=== PATIENT | female | born 1930 | race Caucasian/White ===

== ENCOUNTER 2017-01-23 16:02 | Inpatient (IN) | payer OTHER ==
[2017-01-23] MEDS ORDERED: SODIUM CHLORIDE 500 ML IV STA ×2 (16:35→20:22)
[2017-01-23] MEDS ORDERED: ONDANSETRON 4 MG/2 ML VIAL IVPB ONE (16:35)
[2017-01-23] MEDS ORDERED: ONDANSETRON 4 MG/2 ML VIAL ONE (16:46)
--- NOTE | 2017-01-23 17:10 | PDOC ---
History of Present Illness - General History Source: Family Exam Limitations: Other - History of Present Illness Initial Comments: 01/23/17 18:47 The patient is a 86 year old female presenting with family, with a significant past medical history of HTN, arthritis, left lower extremity atrophy, asthma and colon CA s/p resection, who presents to the emergency department with fever , nausea, vomiting and abdominal pain for the past 3 days. The daughter describes her abdominal pain as moderate in severity, without radiation or modifying factors. The pts vomit appears to be food contents, no blood. They state that every 3 months or so the biliary stent gets clogged and has to be drained, which usually presents with these symptoms. The family notes that most of the bowel movements the patient has are diarrhea like due to the colon resection. The family denies chills and constipation.. Allergies: None Past surgical history: biliary leak-01/10-s/p ERCP/stent pig tail drainage, TKR, right sided carpal tunnel surgery, Colon resection Social history: No alcohol, tobacco or drug use reported PMD - Dr. Mclean GI - Dr. Balderas / Dr. Child <Glen Barahona - Last Filed: 01/23/17 18:47> <Trice Sanchez - Last Filed: 01/24/17 02:31> <Jamie Quarles - Last Filed: 01/25/17 08:13> - General Chief Complaint: Nausea/Vomiting Stated Complaint: VOMITING Time Seen by Provider: 01/23/17 16:34 Past History <Glen Barahona - Last Filed: 01/23/17 18:47> <Trice Sanchez - Last Filed: 01/24/17 02:31> - Past Medical History Anemia: No Asthma: Yes (NO RECENT ATTACK) Cancer: Yes (CECAL COLON) Cardiac Disorders: No CVA: No COPD: No CHF: No Dementia: No Diabetes: No GI Disorders: Yes (BILE LEAK) Disorders: No HTN: Yes Hypercholesterolemia: No Liver Disease: No Seizures: No Thyroid Disease: No - Surgical History Abdominal Surgery: Yes (RT HEMICOLECTOMY, REVERSAL OF ILEOSTOMY) Appendectomy: No Cardiac Surgery: No Cholecystectomy: Yes (biliary leak-/15-s/p ERCP/stent pig tail drainage) Lung Surgery: No Neurologic Surgery: No Orthopedic Surgery: Yes (CARPAL TUNNEL RIGHT; RT KNEE REPLACEMENT; ROTATOR CUFF) - Psycho/Social/Smoking Cessation Hx Anxiety: No Suicidal Ideation: No Smoking History: Unknown if ever smoked Have you smoked in the past 12 months: No Number of Cigarettes Smoked Daily: 0 Information on smoking cessation initiated: No Hx Alcohol Use: No Drug/Substance Use Hx: No Substance Use Type: None Hx Substance Use Treatment: No <Jamie Quarles - Last Filed: 01/25/17 08:13> - Past Medical History Allergies/Adverse Reactions: Allergies Allergy/AdvReac Type Severity Reaction Status Date / Time No Known Allergies Allergy Verified 01/23/17 16:21 Home Medications: Ambulatory Orders Amlodipine Besylate 5 mg PO DAILY #1 tablet 10/19/16 Review of Systems - Review of Systems Able to Perform ROS?: No Comments:: 01/23/17 18:47 ROS is limited. <Glen Barahona - Last Filed: 01/23/17 18:47> *Physical Exam - Vital Signs Last Vital Signs Temp Pulse Resp BP Pulse Ox 97.9 F 92 H 18 142/50 100 01/23/17 16:05 01/23/17 16:05 01/23/17 16:05 01/23/17 16:05 01/23/17 16:05 - Physical Exam Comments: 01/23/17 18:48 GENERAL: The patient is awake, alert, in mild distress. HEAD: Normocephalic, atraumatic. EYES: extraocular movements intact, sclera anicteric, conjunctiva clear. ENT: Moist mucous membranes. NECK: Normal range of motion, supple LUNGS: Breath sounds equal, clear to auscultation bilaterally. No wheezes, no rhonchi, no rales. HEART: Regular rate and rhythm, without murmur, rub or gallop. ABDOMEN: +Diffused abdominal tenderness. Well healed scars. Soft, normoactive bowel sounds. No guarding, no rebound.No CVA tenderness EXTREMITIES: Normal range of motion, no edema. No clubbing or cyanosis. No cords, erythema, or tenderness. NEUROLOGICAL: No facial assymetry. PSYCH: Normal mood, normal affect. SKIN: Warm, Dry, normal turgor <Glen Barahona - Last Filed: 01/23/17 18:47> - Vital Signs Last Vital Signs Temp Pulse Resp BP Pulse Ox 100.0 F H 96 H 22 123/60 97 01/23/17 21:53 01/23/17 21:53 01/23/17 21:53 01/23/17 21:53 01/23/17 21:53 <Trice Sanchez - Last Filed: 01/24/17 02:31> - Vital Signs Last Vital Signs Temp Pulse Resp BP Pulse Ox 97.9 F 92 H 18 142/50 100 01/23/17 16:05 01/23/17 16:05 01/23/17 16:05 01/23/17 16:05 01/23/17 16:05 <Jamie Quarles - Last Filed: 01/25/17 08:13> Heart Score/ECG Review - ECG Impressions Comment:: 01/23/17 18:17 Twelve-lead EKG was performed and reviewed by me. There is normal sinus rhythm with a normal rate. rate of 92 normal axis twi in v1, v2 <Jamie Quarles - Last Filed: 01/25/17 08:13> ED Treatment Course - LABORATORY CBC & Chemistry Diagram: 01/23/17 17:30 01/23/17 17:30 - ADDITIONAL ORDERS Additional order review: Laboratory Results 01/23/17 17:30 Sodium Cancelled Potassium Cancelled Chloride Cancelled Carbon Dioxide Cancelled Anion Gap Cancelled BUN Cancelled Creatinine Cancelled Creat Clearance w eGFR Cancelled Random Glucose Cancelled Calcium Cancelled Total Bilirubin Cancelled AST Cancelled ALT Cancelled Alkaline Phosphatase Cancelled Creatine Kinase Cancelled Troponin I Cancelled Total Protein Cancelled Albumin Cancelled Lipase Cancelled 01/23/17 17:30 RBC 4.14 MCV 92.3 MCHC 35.0 RDW 13.5 MPV 8.7 Neutrophils % 87.3 H Lymphocytes % 5.7 L D Monocytes % 6.8 Eosinophils % 0.1 D Basophils % 0.1 - Medications Given in the ED: ED Medications Discontinued Medications Generic Name Dose Route Start Last Admin Trade Name Freq PRN Reason Stop Dose Admin Sodium Chloride 500 mls @ 500 mls/hr 01/23/17 16:35 01/23/17 17:01 Normal Saline - IV 01/23/17 17:34 500 mls/hr ASDIR STA Administration Ondansetron HCl 4 mg 01/23/17 16:35 01/23/17 17:02 Zofran Injection IVPB 01/23/17 16:36 4 mg ONCE ONE Administration <Glen Barahona - Last Filed: 01/23/17 18:47> - LABORATORY CBC & Chemistry Diagram: 01/23/17 17:30 01/23/17 19:52 - ADDITIONAL ORDERS Additional order review: Laboratory Results 01/23/17 01/23/17 01/23/17 20:29 19:52 18:33 Sodium 139 Cancelled Potassium 3.9 Cancelled Chloride 106 Cancelled Carbon Dioxide 20 L Cancelled Anion Gap 13 Cancelled BUN 16 D Cancelled Creatinine 1.0 Cancelled Creat Clearance w eGFR 52.69 Cancelled Random Glucose 118 H D Cancelled Lactic Acid 1.735 Calcium 8.6 Cancelled Total Bilirubin 3.1 H D Cancelled AST 456 H D Cancelled ALT 431 H D Cancelled Alkaline Phosphatase 372 H Cancelled Creatine Kinase 44 Cancelled Troponin I < 0.02 Cancelled Total Protein 6.4 Cancelled Albumin 3.2 L Cancelled Lipase Cancelled 01/23/17 17:30 Sodium Cancelled Potassium Cancelled Chloride Cancelled Carbon Dioxide Cancelled Anion Gap Cancelled BUN Cancelled Creatinine Cancelled Creat Clearance w eGFR Cancelled Random Glucose Cancelled Lactic Acid Calcium Cancelled Total Bilirubin Cancelled AST Cancelled ALT Cancelled Alkaline Phosphatase Cancelled Creatine Kinase Cancelled Troponin I Cancelled Total Protein Cancelled Albumin Cancelled Lipase Cancelled 01/23/17 17:30 RBC 4.14 MCV 92.3 MCHC 35.0 RDW 13.5 MPV 8.7 Neutrophils % 87.3 H Lymphocytes % 5.7 L D Monocytes % 6.8 Eosinophils % 0.1 D Basophils % 0.1 - RADIOLOGY Radiograph Interpretation: 01/24/17 01:32 EXAM: CT ABDOMEN AND PELVIS WITH CONTRAST Reviewed by Imaging certification technician: Trace perihepatic ascites appearing since . Moderate intrahepatic biliary dilatation, not significantly changed. Biliary stent in stable position. No bowel obstruction, colitis, or free air. Partial colectomy. Appendix not identified. Cystic foci bilateral kidneys with indeterminate densities, correlate with ultrasound. Unremarkable pancreas and gallbladder. 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 Large midline subcutaneous tissue defect. Scoliosis. - Medications Given in the ED: ED Medications Discontinued Medications Generic Name Dose Route Start Last Admin Trade Name Freq PRN Reason Stop Dose Admin Acetaminophen 1,000 mg 01/23/17 20:17 01/23/17 20:15 Ofirmev Injection - IVPB 01/23/17 20:18 1,000 mg ONCE ONE Administration Sodium Chloride 500 mls @ 500 mls/hr 01/23/17 16:35 01/23/17 17:01 Normal Saline - IV 01/23/17 17:34 500 mls/hr ASDIR STA Administration Sodium Chloride 500 mls @ 500 mls/hr 01/23/17 20:22 01/23/17 20:30 Normal Saline - IV 01/23/17 21:21 500 mls/hr ASDIR STA Administration Morphine Sulfate 2 mg 01/23/17 18:52 01/23/17 18:57 Morphine Injection - IVPUSH 01/23/17 18:53 2 mg ONCE ONE Administration Ondansetron HCl 4 mg 01/23/17 16:35 01/23/17 17:02 Zofran Injection IVPB 01/23/17 16:36 4 mg ONCE ONE Administration <Trice Sanchez - Last Filed: 01/24/17 02:31> - LABORATORY CBC & Chemistry Diagram: 01/24/17 08:18 01/24/17 08:18 - Medications Given in the ED: ED Medications Discontinued Medications Generic Name Dose Route Start Last Admin Trade Name Freq PRN Reason Stop Dose Admin Ondansetron HCl 4 mg 01/23/17 16:35 01/23/17 17:02 Zofran Injection IVPB 01/23/17 16:36 4 mg ONCE ONE Administration <Jamie Quarles - Last Filed: 01/25/17 08:13> Medical Decision Making - Medical Decision Making 01/23/17 18:08 86y F hx of htn, colon ca s/p rt hemicholectomy s/p reversal of ilostomy, biliary leak s/p stenting, presenst with abd pain, fever/chills for several days associated with nausea. on exam pt appears uncomfortable, has diffuse abd tenderness ?stent obstruction will obtain ct abdomen to r/o pathology will give fluids, zofran will reassess A portion of this note was documented by scribe services under my direction. I have reviewed the details of the note, within reason, and agree with the documentation with the following case summary and management plan written by me <Jamie Quarles - Last Filed: 01/25/17 08:13> *DC/Admit/Observation/Transfer - Attestations Scribe Attestion: 01/23/17 18:48 Documentation prepared by Glen Barahona, acting as medical officer psychiatry for Jamie Quarles MD <Glen Barahona - Last Filed: 01/23/17 18:47> <Trice Sanchez - Last Filed: 01/24/17 02:31> <Jamie Quarles - Last Filed: 01/25/17 08:13> Diagnosis at time of Disposition: Abdominal pain, Fever - Referrals
[2017-01-23 17:41] LABS: BASOPHIL 0.1 % (0-2.0); EOSINOPHIL 0.1 % (0-4.5); MCH 32.3 pg (25.7-33.7); MEAN CELL VOLUME 92.3 fl (80-96); MEAN PLT VOLUME 8.7 fl (7.5-11.1); NEUTROPHILS 87.3 % (42.8-82.8); PLATELET COUNT 156 K/MM3 (134-434); RDW 13.5 % (11.6-15.6); WHITE BLOOD COUNT 9.3 K/mm3 (4.0-10.0)
[2017-01-23] MEDS ORDERED: morphine CARPU-JECT 2 MG/1 ML DISP.SYRIN IVPUSH ONE (18:52)
[2017-01-23] MEDS ORDERED: morphine CARPU-JECT 2 MG/1 ML DISP.SYRIN ONE (18:53)
[2017-01-23] MEDS ORDERED: ACETAMINOPHEN INJECTION 100 ML IVPB ONE (20:17)
[2017-01-23] MEDS ORDERED: ACETAMINOPHEN 1000 MG/100 ML VIAL (NON FORMULARY) IVPB ONE (20:17)
[2017-01-23 21:51] LABS: ALBUMIN 3.2 g/dl (3.4-5.0); ANION GAP 13 (8-16); CALCIUM 8.6 mg/dL (8.5-10.1); CO2 20 mmol/L (21-32); GLUCOSE,RANDOM 118 mg/dL (74-106)
[2017-01-23 21:55] LABS: ALK PHOS 372 U/L (45-117); BILIRUBIN,TOTAL 3.1 mg/dL (0.2-1.0); SGOT/AST 456 U/L (15-37); SGPT/ALT 431 U/L (12-78); TOT PROT 6.4 g/dl (6.4-8.2); TROPONIN I < 0.02 ng/ml (0.00-0.05)
[2017-01-24 02:05] LABS: URINE APPEARANCE CLEAR; URINE BILIRUBIN NEGATIVE (NEGATIVE); URINE COLOR AMBER; URINE GLUCOSE (UA) NEGATIVE (NEGATIVE); URINE KETONE NEGATIVE (NEGATIVE); URINE LEUK ESTERASE NEGATIVE (NEGATIVE); URINE NITRITE NEGATIVE (NEGATIVE); URINE PROTEIN NEGATIVE (NEGATIVE); URINE UROBILINOGEN NEGATIVE E.U./dl (0.2-1.0)
[2017-01-24 02:08] LABS: URINE BLOOD 1+ (NEGATIVE)
--- NOTE | 2017-01-24 02:32 | PDOC ---
*Physical Exam - Vital Signs Last Vital Signs Temp Pulse Resp BP Pulse Ox 100.0 F H 96 H 22 123/60 97 01/23/17 21:53 01/23/17 21:53 01/23/17 21:53 01/23/17 21:53 01/23/17 21:53 <TamyraGlen - Last Filed: 01/24/17 06:28> - Vital Signs Last Vital Signs Temp Pulse Resp BP Pulse Ox 100.0 F H 96 H 22 123/60 97 01/23/17 21:53 01/23/17 21:53 01/23/17 21:53 01/23/17 21:53 01/23/17 21:53 <Trice Sanchez - Last Filed: 01/24/17 06:34> ED Treatment Course - LABORATORY CBC & Chemistry Diagram: 01/23/17 17:30 01/23/17 19:52 - ADDITIONAL ORDERS Additional order review: Laboratory Results 01/24/17 01/23/17 01/23/17 01:50 20:29 19:52 Sodium 139 Potassium 3.9 Chloride 106 Carbon Dioxide 20 L Anion Gap 13 BUN 16 D Creatinine 1.0 Creat Clearance w eGFR 52.69 Random Glucose 118 H D Lactic Acid 1.735 Calcium 8.6 Total Bilirubin 3.1 H D AST 456 H D ALT 431 H D Alkaline Phosphatase 372 H Creatine Kinase 44 Troponin I < 0.02 Total Protein 6.4 Albumin 3.2 L Lipase Urine Color Eryn Urine Appearance Clear Urine pH 5.0 Ur Specific Bailey 1.049 H Urine Protein Negative Urine Glucose (UA) Negative Urine Ketones Negative Urine Blood 1+ H Urine Nitrite Negative Urine Bilirubin Negative Urine Urobilinogen Negative Ur Leukocyte Esterase Negative 01/23/17 01/23/17 18:33 17:30 Sodium Cancelled Cancelled Potassium Cancelled Cancelled Chloride Cancelled Cancelled Carbon Dioxide Cancelled Cancelled Anion Gap Cancelled Cancelled BUN Cancelled Cancelled Creatinine Cancelled Cancelled Creat Clearance w eGFR Cancelled Cancelled Random Glucose Cancelled Cancelled Lactic Acid Calcium Cancelled Cancelled Total Bilirubin Cancelled Cancelled AST Cancelled Cancelled ALT Cancelled Cancelled Alkaline Phosphatase Cancelled Cancelled Creatine Kinase Cancelled Cancelled Troponin I Cancelled Cancelled Total Protein Cancelled Cancelled Albumin Cancelled Cancelled Lipase Cancelled Cancelled Urine Color Urine Appearance Urine pH Ur Specific Bailey Urine Protein Urine Glucose (UA) Urine Ketones Urine Blood Urine Nitrite Urine Bilirubin Urine Urobilinogen Ur Leukocyte Esterase 01/23/17 17:30 RBC 4.14 MCV 92.3 MCHC 35.0 RDW 13.5 MPV 8.7 Neutrophils % 87.3 H Lymphocytes % 5.7 L D Monocytes % 6.8 Eosinophils % 0.1 D Basophils % 0.1 - Medications Given in the ED: ED Medications Discontinued Medications Generic Name Dose Route Start Last Admin Trade Name Yasmani PRN Reason Stop Dose Admin Acetaminophen 1,000 mg 01/23/17 20:17 01/23/17 20:15 Ofirmev Injection - IVPB 01/23/17 20:18 1,000 mg ONCE ONE Administration Sodium Chloride 500 mls @ 500 mls/hr 01/23/17 16:35 01/23/17 17:01 Normal Saline - IV 01/23/17 17:34 500 mls/hr ASDIR STA Administration Sodium Chloride 500 mls @ 500 mls/hr 01/23/17 20:22 01/23/17 20:30 Normal Saline - IV 01/23/17 21:21 500 mls/hr ASDIR STA Administration Morphine Sulfate 2 mg 01/23/17 18:52 01/23/17 18:57 Morphine Injection - IVPUSH 01/23/17 18:53 2 mg ONCE ONE Administration Ondansetron HCl 4 mg 01/23/17 16:35 01/23/17 17:02 Zofran Injection IVPB 01/23/17 16:36 4 mg ONCE ONE Administration <Glen Pryor - Last Filed: 01/24/17 06:28> - LABORATORY CBC & Chemistry Diagram: 01/23/17 17:30 01/23/17 19:52 - ADDITIONAL ORDERS Additional order review: Laboratory Results 01/24/17 01/23/17 01/23/17 01:50 20:29 19:52 Sodium 139 Potassium 3.9 Chloride 106 Carbon Dioxide 20 L Anion Gap 13 BUN 16 D Creatinine 1.0 Creat Clearance w eGFR 52.69 Random Glucose 118 H D Lactic Acid 1.735 Calcium 8.6 Total Bilirubin 3.1 H D AST 456 H D ALT 431 H D Alkaline Phosphatase 372 H Creatine Kinase 44 Troponin I < 0.02 Total Protein 6.4 Albumin 3.2 L Lipase Urine Color Eryn Urine Appearance Clear Urine pH 5.0 Ur Specific Bailey 1.049 H Urine Protein Negative Urine Glucose (UA) Negative Urine Ketones Negative Urine Blood 1+ H Urine Nitrite Negative Urine Bilirubin Negative Urine Urobilinogen Negative Ur Leukocyte Esterase Negative 01/23/17 01/23/17 18:33 17:30 Sodium Cancelled Cancelled Potassium Cancelled Cancelled Chloride Cancelled Cancelled Carbon Dioxide Cancelled Cancelled Anion Gap Cancelled Cancelled BUN Cancelled Cancelled Creatinine Cancelled Cancelled Creat Clearance w eGFR Cancelled Cancelled Random Glucose Cancelled Cancelled Lactic Acid Calcium Cancelled Cancelled Total Bilirubin Cancelled Cancelled AST Cancelled Cancelled ALT Cancelled Cancelled Alkaline Phosphatase Cancelled Cancelled Creatine Kinase Cancelled Cancelled Troponin I Cancelled Cancelled Total Protein Cancelled Cancelled Albumin Cancelled Cancelled Lipase Cancelled Cancelled Urine Color Urine Appearance Urine pH Ur Specific Bailey Urine Protein Urine Glucose (UA) Urine Ketones Urine Blood Urine Nitrite Urine Bilirubin Urine Urobilinogen Ur Leukocyte Esterase 01/23/17 17:30 RBC 4.14 MCV 92.3 MCHC 35.0 RDW 13.5 MPV 8.7 Neutrophils % 87.3 H Lymphocytes % 5.7 L D Monocytes % 6.8 Eosinophils % 0.1 D Basophils % 0.1 - Medications Given in the ED: ED Medications Discontinued Medications Generic Name Dose Route Start Last Admin Trade Name Yasmani PRN Reason Stop Dose Admin Acetaminophen 1,000 mg 01/23/17 20:17 01/23/17 20:15 Ofirmev Injection - IVPB 01/23/17 20:18 1,000 mg ONCE ONE Administration Sodium Chloride 500 mls @ 500 mls/hr 01/23/17 16:35 01/23/17 17:01 Normal Saline - IV 01/23/17 17:34 500 mls/hr ASDIR STA Administration Sodium Chloride 500 mls @ 500 mls/hr 01/23/17 20:22 01/23/17 20:30 Normal Saline - IV 01/23/17 21:21 500 mls/hr ASDIR STA Administration Morphine Sulfate 2 mg 01/23/17 18:52 01/23/17 18:57 Morphine Injection - IVPUSH 01/23/17 18:53 2 mg ONCE ONE Administration Ondansetron HCl 4 mg 01/23/17 16:35 01/23/17 17:02 Zofran Injection IVPB 01/23/17 16:36 4 mg ONCE ONE Administration <Trice Sanchez - Last Filed: 01/24/17 06:34> Medical Decision Making - Medical Decision Making 01/24/17 02:[address] Pily Mclean (via answering service) at 2:33 Awaiting call back 01/24/17 05:34 Second call placed to Dr. Mclean (via answering service) at 5:34 Awaiting call back 01/24/17 06:03 Third called placed to Dr. Mclean (via answering service) at 6:03 Awaiting call back 01/24/17 06:[address] Mclean. Decision to admit to hospitalist was made. <Trice Sanchez - Last Filed: 01/24/17 06:34> *DC/Admit/Observation/Transfer - Discharge Dispostion Admit: Yes <Glen Pryor - Last Filed: 01/24/17 06:28> <Trice Sanchez - Last Filed: 01/24/17 06:34> Diagnosis at time of Disposition: Fever Abdominal pain Qualifiers: Abdominal location: generalized Qualified Code(s): R10.84 - Generalized abdominal pain - Referrals Referrals: Edna Kelly MD [Primary Care Provider] - - Patient Instructions - Post Discharge Activity
[2017-01-24 02:41] LABS: URINE MUCUS RARE; URINE RBC 2 /hpf (0-3); URINE WBC 2 /hpf (3-5)
[2017-01-24] MEDS ORDERED: PIPERACILLIN/TAZOB 2.25 GM 2.25 GM in DEXTROSE 5%-WATER - 50 ML IVPB ONE (06:27)
--- NOTE | 2017-01-24 07:28 | HP ---
CHIEF COMPLAINT: PCP: HISTORY OF PRESENT ILLNESS: ER course was notable for: (1) (2) (3) Recent Travel: PAST MEDICAL HISTORY: PAST SURGICAL HISTORY: Social History: Smoking: Alcohol: Drugs: Family History: Allergies No Known Allergies Allergy (Verified 01/23/17 16:21) HOME MEDICATIONS: Home Medications Medication Instructions Recorded Amlodipine Besylate 5 mg PO DAILY #1 tablet 10/19/16 REVIEW OF SYSTEMS CONSTITUTIONAL: Absent: fever, chills, diaphoresis, generalized weakness, malaise, loss of appetite, weight change HEENT: Absent: rhinorrhea, nasal congestion, throat pain, throat swelling, difficulty swallowing, mouth swelling, ear pain, eye pain, visual changes CARDIOVASCULAR: Absent: chest pain, syncope, palpitations, irregular heart rate, lightheadedness , peripheral edema RESPIRATORY: Absent: cough, shortness of breath, dyspnea with exertion, orthopnea, wheezing, stridor, hemoptysis GASTROINTESTINAL: Absent: abdominal pain, abdominal distension, nausea, vomiting, diarrhea, constipation, melena, hematochezia GENITOURINARY: Absent: dysuria, frequency, urgency, hesitancy, hematuria, flank pain, genital pain MUSCULOSKELETAL: Absent: myalgia, arthralgia, joint swelling, back pain, neck pain SKIN: Absent: rash, itching, pallor HEMATOLOGIC/IMMUNOLOGIC: Absent: easy bleeding, easy bruising, lymphadenopathy, frequent infections ENDOCRINE: Absent: unexplained weight gain, unexplained weight loss, heat intolerance, cold intolerance NEUROLOGIC: Absent: headache, focal weakness or paresthesias, dizziness, unsteady gait, seizure, mental status changes, bladder or bowel incontinence PSYCHIATRIC: Absent: anxiety, depression, suicidal or homicidal ideation, hallucinations. PHYSICAL EXAMINATION GENERAL: Awake, alert, and fully oriented, in no acute distress. HEAD: Normal with no signs of trauma. EYES: Pupils equal, round and reactive to light, extraocular movements intact, sclera anicteric, conjunctiva clear. No lid lag. EARS, NOSE, THROAT: Ears normal, nares patent, oropharynx clear without exudates. Moist mucous membranes. NECK: Normal range of motion, supple without lymphadenopathy, JVD, or masses. LUNGS: Breath sounds equal, clear to auscultation bilaterally. No wheezes, and no crackles. No accessory muscle use. HEART: Regular rate and rhythm, normal S1 and S2 without murmur, rub or gallop. ABDOMEN: Soft, nontender, not distended, normoactive bowel sounds, no guarding, no rebound, no masses. No hepatomegaly or splenomegaly. MUSCULOSKELETAL: Normal range of motion at all joints. No bony deformities or tenderness. No CVA tenderness. UPPER EXTREMITIES: 2+ pulses, warm, well-perfused. No cyanosis. No clubbing. No peripheral edema. LOWER EXTREMITIES: 2+ pulses, warm, well-perfused. No calf tenderness. No peripheral edema. NEUROLOGICAL: Cranial nerves II-XII intact. Normal speech. Normal gait. PSYCHIATRIC: Cooperative. Good eye contact. Appropriate mood and affect. SKIN: Warm, dry, normal turgor, no rashes or lesions noted, normal capillary refill. ASSESSMENT/PLAN:
--- NOTE | 2017-01-24 07:52 | PN ---
Progress Note (short form) - Note Progress Note: Full consult dictated Suspected cholangitis secondary to clogged biliary stent NPO Broad spectrum IV Abx Hydration AM Labs ERCP
[2017-01-24 08:44] LABS: BASOPHIL 0.3 % (0-2.0); EOSINOPHIL 0.1 % (0-4.5); MCH 31.8 pg (25.7-33.7); MCHC 33.8 g/dl (32.0-36.0); MEAN PLT VOLUME 8.2 fl (7.5-11.1); NEUTROPHILS 79.5 % (42.8-82.8); PLATELET COUNT 129 K/MM3 (134-434); RDW 13.4 % (11.6-15.6); WHITE BLOOD COUNT 9.5 K/mm3 (4.0-10.0)
[2017-01-24 09:08] LABS: BILIRUBIN,TOTAL 3.3 mg/dL (0.2-1.0); CALCIUM 8.4 mg/dL (8.5-10.1); CREATININE 1.1 mg/dL (0.55-1.02); TOT PROT 6.1 g/dl (6.4-8.2)
[2017-01-24 09:49] LABS: INR 1.3 (0.82-1.09); PROTHROMBIN TIME (PATIENT) 14.4 SEC (9.98-11.88)
[2017-01-24 09:51] LABS: ACTIVATED PTT 33.4 SECONDS (26.9-34.4)
--- NOTE | 2017-01-24 10:05 | CONS ---
DATE OF CONSULTATION: DATE OF DICTATION: 01/23/2017 REQUESTING PHYSICIAN: Edna Kelly MD HISTORY OF PRESENT ILLNESS: The patient is an 86-year-old female admitted through [facility] Emergency Room for evaluation of 2-3 days of worsening abdominal pain and chills. She also had a fever at home. She has a complicated medical history that included a bile leak status post laparoscopic cholecystectomy which converted to an open cholecystectomy in September of 2015. From that point, she developed her current intraabdominal fluid collections, abscesses requiring repeated percutaneous drainage. She had an ERCP with multiple stentings and multiple prolonged hospitalizations. 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 It appeared as though she also had a metal biliary stent at [facility] with stricture found, and she last underwent ERCP in September of [address] Ernie Carrero that confirmed a clogged biliary stent, and that appeared to be obstructed at that time, which he was able to unclog . In the emergency room, she did have a temperature spike to 102.2. initial triage vitals revealed temperature of 98, pulse of 74, and blood pressure of 134/76. PAST MEDICAL HISTORY: Includes polio, hypertension, GERD, history of gangrenous cholecystitis, right-sided colon cancer. She developed history of enterocutaneous fistulas. Also, renal insufficiency, osteoarthritis. PAST SURGICAL HISTORY: Includes total right knee replacement, arthroscopic procedure on her right shoulder, open cholecystectomy in September of 2014 for gangrenous cholecystitis. She had an ileostomy that was reversed. Also, rotator cuff surgery, carpal tunnel release, ileostomy, and right knee replacement. SOCIAL HISTORY: No history of alcohol, tobacco, intravenous drug abuse, or illicit drugs. She lives at home. MEDICATIONS PRIOR TO ADMISSION: Include amlodipine. REVIEW OF SYSTEMS: She complained of some dyspnea and abdominal pain with nausea. She denied any vomiting. No rectal bleeding. She does have a history of chronic constipation. PHYSICAL EXAMINATION: Vital signs: Temperature is 99, pulse of 84, blood pressure 115/55. HEENT: Sclerae were mildly icteric. Heart: Examination of the heart revealed a regular rate and rhythm. No murmurs are appreciated. Lungs: Clear to auscultation bilaterally. Abdomen: Examination of the abdomen revealed multiple surgical scars. Abdomen was otherwise soft. She had normoactive bowel sounds. No hepatosplenomegaly was appreciated. No masses were palpated. No hernias detected. She did have tenderness to palpation in the right upper quadrant. There was no guarding or rebound. Extremities: Examination of the extremities revealed no lower extremity edema. LABORATORY EVALUATION: White blood count 9.3, hemoglobin 13.4, hematocrit 38.2, platelets of 156. Sodium 139, potassium 3.9, chloride 106, BUN of 16, creatinine 1.0, glucose of 118, AST of 456, ALT of 431, alkaline phosphatase 372, total bilirubin 3.1 with an albumin of 3.2. Radiology reports that CT scan has been performed, but it has not been officially read as of yet. Review by imaging client relationship manager, there is trace perihepatic ascites appearing since October 13, 2016, moderate intrahepatic biliary dilatation. Biliary stent was in place, cystic foci bilateral kidneys, unremarkable pancreas and gallbladder, adenoma of the left adrenal gland, and large midline subcutaneous tissue defect as well as scoliosis. IMPRESSION: An 86-year-old female with complicated surgical history leading to a metallic biliary stent placement that has been clogged in the past leading to cholangitis. Current clinical picture fits the same. PLAN: Currently, she is to receive one dose of Zosyn, would continue Zosyn. Obtain an ID consult. I did discuss ERCP with the patient because the potential risks of the procedure including, but not limited to, bleeding, perforation requiring surgery, severe infections, sedation and medication effects, and pancreatitis, all of which could be potentially life threatening. She has agreed to the procedure. We will keep her n.p.o. for now. I will check a.m. labs, and other recommendations pending the patients clinical course. I thank you for this consultative opportunity. ASHA POOL DO [id number]
--- NOTE | 2017-01-24 10:08 | CONSULT ---
Consult Consult Specialty:: infectious diseases Referred by:: Reason for Consultation:: cholangitis - History of Present Illness History of Present Illness: 86 year old female presenting with family, with a significant past medical history of HTN, arthritis, left lower extremity atrophy, asthma and colon CA s/ p resection, who presents to the emergency department with fever, nausea, vomiting and abdominal pain for the past 3 days. The daughter describes her abdominal pain as moderate in severity, without radiation or modifying factors. The pts vomit appears to be food contents, no blood. They state that every 3 months or so the biliary stent gets clogged and has to be drained, which usually presents with these symptoms. The family notes that most of the bowel movements the patient has are diarrhea like due to the colon resection. according to the history patient had a permanent metal stent placed in the patient in [facility] which then probably shifted and is not accessible to be removed. patient had this episode once before and now came back with the same type of episode. patient was taken for ercp and and the stent was washed and cleaned and another was placed patient now extubated and doing well daughter with her. patient in no distress - History Source History Provided By: Patient, Family Member Limitations to Obtaining History: Clinical Condition - Past Medical History Cardio/Vascular: Yes: HTN Pulmonary: Yes: Asthma Gastrointestinal: Yes: Cancer (right sided colon cancer), Other Hepatobiliary: Yes: Cholecystitis Renal/: Yes: Renal Inusuff Infectious Disease: Yes: Other Musculoskeletal: Yes: Osteoarthritis Additional Medical History: polio - Past Surgical History Past Surgical History: Yes: Cholecystectomy, Colectomy (for right sided colon cancer), Joint Replacement (right knee) - Alcohol/Substance Use Hx Alcohol Use: No History of Substance Use: reports: None - Smoking History Smoking history: Unknown if ever smoked Have you smoked in the past 12 months: No Aproximately how many cigarettes per day: 0 - Social History Usual Living Arrangement: [facility] ADL: Independent History of Recent Travel: No Home Medications - Allergies Allergies/Adverse Reactions: Allergies Allergy/AdvReac Type Severity Reaction Status Date / Time No Known Allergies Allergy Verified 01/23/17 16:21 - Home Medications Home Medications: Ambulatory Orders Amlodipine Besylate 5 mg PO DAILY #1 tablet 10/19/16 Review of Systems - Review of Systems Constitutional: reports: Fever, Lethargy, Weakness Eyes: reports: No Symptoms HENT: reports: No Symptoms Neck: reports: No Symptoms Cardiovascular: reports: No Symptoms Respiratory: reports: No Symptoms Gastrointestinal: reports: Abdominal Pain, Nausea, Vomiting Musculoskeletal: reports: No Symptoms Integumentary: reports: No Symptoms Neurological: reports: No Symptoms Endocrine: reports: No Symptoms Hematology/Lymphatic: reports: No Symptoms Psychiatric: reports: No Symptoms Physical Exam Vital Signs: Vital Signs Temperature 98.1 F 01/24/17 07:58 Pulse Rate 66 01/24/17 07:58 Respiratory Rate 20 01/24/17 07:58 Blood Pressure 119/66 01/24/17 07:58 O2 Sat by Pulse Oximetry (%) 98 01/24/17 07:58 Constitutional: Yes: No Distress, Calm Eyes: Yes: Conjunctiva Clear HENT: Yes: Atraumatic Neck: Yes: Supple, Trachea Midline Cardiovascular: Yes: Regular Rate and Rhythm Respiratory: Yes: Regular, CTA Bilaterally Gastrointestinal: Yes: Soft, Hypoactive Bowel Sounds Musculoskeletal: Yes: WNL Extremities: Yes: WNL Neurological: Yes: Alert, Oriented Psychiatric: Yes: Alert Labs: CBC, BMP 01/24/17 08:18 01/24/17 08:18 Imaging - Results Chest X-ray: Report Reviewed, Image Reviewed Cat Scan: Report Reviewed, Image Reviewed Assessment/Plan patient with clogged stent post ercp with cleaning of the stent,now doing better cholangitis elevated liver enzymes multiple medical problems dehydration plan hydration abx patient will need it for few days continue to monitor for fever monitor for liver enzymes and the trend
[2017-01-24] MEDS ORDERED: PIPERACILLIN/TAZOB 2.25 GM/50 ML PRE-DOCKED BAG IVPB ONE (10:15)
--- NOTE | 2017-01-24 11:32 | EKG ---
Test Reason : Blood Pressure : / mmHG Vent. Rate : 092 BPM Atrial Rate : 092 BPM P-R Int : 142 ms QRS Dur : 074 ms QT Int : 334 ms P-R-T Axes : 071 -05 035 degrees QTc Int : 413 ms POOR DATA QUALITY, INTERPRETATION MAY BE ADVERSELY AFFECTED NORMAL SINUS RHYTHM SEPTAL INFARCT , AGE UNDETERMINED ABNORMAL ECG WHEN COMPARED WITH ECG OF 10-JUN-2015 13:56, SEPTAL INFARCT IS NOW PRESENT Confirmed by JODY THOMAS, ESVIN ([id number]) on 01/24/2017 11:31:55 AM Referred By: Confirmed By:ESVIN VERA MD
[2017-01-24 11:33] VITALS: BMI 24.5
[2017-01-24] MEDS: SODIUM CHLORIDE 1,000 ML IV SCH (11:37)
[2017-01-24] MEDS ORDERED: ONDANSETRON 4 MG/2 ML VIAL IVPUSH PRN (12:41)
[2017-01-24] MEDS ORDERED: PROMETHAZINE HCL 25 MG/1 ML VIAL IVPUSH PRN (12:41)
[2017-01-24] MEDS ORDERED: LACTATED RINGERS SOLUTION 1,000 ML IV SCH (12:45)
[2017-01-24] MEDS ORDERED: ROCURONIUM BROMIDE 50 MG/5 ML VIAL ONE (12:46)
[2017-01-24] MEDS ORDERED: GLUCAGON 1 MG KIT ONE (12:46)
[2017-01-24] MEDS ORDERED: NEOSTIGMINE METHYLSULFATE 0.5 MG/ML - 10 ML MDV ONE ×2 (12:47→14:35)
[2017-01-24] MEDS ORDERED: DEXAMETHASONE SOD PHOSPHATE 10 MG/1 ML VIAL ONE (12:47)
[2017-01-24] MEDS ORDERED: GLYCOPYRROLATE 0.2 MG/1 ML VIAL ONE ×7 (12:47→15:21)
[2017-01-24] MEDS ORDERED: PROPOFOL 20 ML ONE ×2 (12:47→15:37)
[2017-01-24] MEDS ORDERED: IOHEXOL 300 MG/ML INFUS..BTL IV ONE (14:08)
[2017-01-24] MEDS ORDERED: MIDAZOLAM HCL 2 MG/2 ML SINGLE DOSE VIAL ONE (14:50)
[2017-01-24] MEDS ORDERED: METOPROLOL TARTRATE 5 MG/5 ML VIAL ONE ×2 (14:54→15:29)
[2017-01-24] MEDS ORDERED: NEOSTIGMINE METHYLSULFATE 0.5 MG/1 ML - 10 ML MDV ONE (15:21)
--- NOTE | 2017-01-24 16:06 | PN ---
Progress Note (short form) - Note Progress Note: Patient became hypoxic in the PACU.So patient was ambu bagged with 100% o2.Reversal Glycopyrolate 0.6mgand Neostigmine 3mg was given iv twice in space of 30 minutes.Also Midazolam 2mg was given iv.Patient not able to maintain o2 sat so gave Propofol 100mg given iv and patient was intubated with DL MAC 3.ETT 7 posative etco2.Patient stable in PACU and will be extubated later today.
--- NOTE | 2017-01-24 16:10 | PN ---
Progress Note (short form) - Note Progress Note: Patient became hypoxic in the PACU.So patient was ambu bagged with 100% o2.Reversal Glycopyrolate 0.6mgand Neostigmine 3mg was given iv twice in space of 30 minutes.Also Midazolam 2mg was given iv.Patient not able to maintain o2 sat so gave Propofol 100mg given iv and patient was intubated with DL MAC 3.ETT 7 posative etco2.Patient stable in PACU and will be extubated later today.Also gave [id number] iv twice due to tachycadia and HTN.
--- NOTE | 2017-01-24 16:20 | PN ---
Progress Note (short form) - Note Progress Note: Patient became hypoxic in the PACU.So patient was ambu bagged with 100% o2.Reversal Glycopyrolate 0.6mgand Neostigmine 3mg was given iv twice in space of 30 minutes.Also Midazolam 2mg was given iv.Patient not able to maintain o2 sat so gave Propofol 100mg given iv and patient was intubated with DL MAC 3.ETT 7 posative etco2.Patient stable in PACU and will be extubated later today.Also gave [id number] iv twice due to tachycadia and HTN.Patients iv that she came from the floor was found to be infilterated after she was induced so i think that is why she has difficulty breathing.
[2017-01-24] MEDS ORDERED: ONDANSETRON 4 MG/2 ML VIAL ONE (17:02)
[2017-01-24] MEDS: PIPERACILLIN/TAZOB 3.375 GM/50 ML PRE-DOCKED IVPB SCH (18:43)
--- NOTE | 2017-01-24 22:39 | HP ---
Admitting History and Physical - Primary Care Physician PCP: Dr antolin Brown([facility] [[email or web address] - Admission Chief Complaint: Fever 101, Vomittings, Abd colic History of Present Illness: 86 year old female presenting with family, with a significant past medical history of HTN, arthritis, left lower extremity atrophy, asthma and colon CA s/ p resection, who presents to the emergency department with fever, nausea, vomiting and abdominal pain for the past 3 days. The daughter describes her abdominal pain as moderate in severity, without radiation or modifying factors. The pts vomit appears to be food contents, no blood. They state that every 3 months or so the biliary stent gets clogged and has to be drained, which usually presents with these symptoms. The family notes that most of the bowel movements the patient has are diarrhea like due to the colon resection. according to the history patient had a permanent metal stent placed in the patient in [facility] which then probably shifted and is not accessible to be removed. patient had this episode once before and now came back with the same type of episode. patient was taken for ercp and and the stent was washed and cleaned and another was placed patient now extubated and doing well daughter with her. patient in no distress History Source: Patient Limitations to Obtaining History: Poor Historian - Past Medical History Cardiovascular: Yes: HTN Pulmonary: Yes: Asthma Gastrointestinal: Yes: Cancer (right sided colon cancer), Other Hepatobiliary: Yes: Cholecystitis Renal/: Yes: Renal Inusuff Heme/Onc: Yes: Anemia Infectious Disease: Yes: Other Musculoskeletal: Yes: Osteoarthritis - Past Surgical History Past Surgical History: Yes: Cholecystectomy, Colectomy (for right sided colon cancer), Joint Replacement (right knee) - Smoking History Smoking history: Unknown if ever smoked Have you smoked in the past 12 months: No Aproximately how many cigarettes per day: 0 - Alcohol/Substance Use Hx Alcohol Use: No History of Substance Use: reports: None - Social History ADL: Independent History of Recent Travel: No Home Medications - Allergies Allergies/Adverse Reactions: Allergies Allergy/AdvReac Type Severity Reaction Status Date / Time No Known Allergies Allergy Verified 01/23/17 16:21 - Home Medications Home Medications: Ambulatory Orders Amlodipine Besylate 5 mg PO DAILY #1 tablet 10/19/16 Review of Systems - Review of Systems Constitutional: reports: Chills Eyes: reports: No Symptoms HENT: reports: No Symptoms Neck: reports: No Symptoms Cardiovascular: reports: Other (No chest pain) Respiratory: reports: No Symptoms Gastrointestinal: reports: Other Genitourinary: reports: No Symptoms Breasts: reports: No Symptoms Reported Endocrine: reports: No Symptoms Psychiatric: reports: No Symptoms Physical Examination Vital Signs: Vital Signs Temperature 98.1 F 01/24/17 18:35 Pulse Rate 74 01/24/17 18:35 Respiratory Rate 18 01/24/17 18:35 Blood Pressure 137/64 01/24/17 18:35 O2 Sat by Pulse Oximetry (%) 95 01/24/17 18:15 Constitutional: Yes: No Distress Eyes: Yes: Conjunctiva Clear, EOM Intact HENT: Yes: Atraumatic, Normocephalic Neck: Yes: Supple, Trachea Midline Cardiovascular: Yes: Regular Rate and Rhythm, S1, S2 Respiratory: Yes: Regular, CTA Bilaterally Gastrointestinal: Yes: Normal Bowel Sounds, Soft ...Rectal Exam: Yes: Deferred Musculoskeletal: Yes: Joint Stiffness, Muscle Weakness Edema: No Peripheral Pulses WNL: Yes Labs: CBC, BMP 01/24/17 08:18 01/24/17 08:18 Problem List - Problems (1) Sepsis Code(s): A41.9 - SEPSIS, UNSPECIFIED ORGANISM (2) Cholangitis Code(s): K83.0 - CHOLANGITIS (3) Obstructive jaundice Code(s): K83.8 - OTHER SPECIFIED DISEASES OF BILIARY TRACT (4) HTN (hypertension) Code(s): I10 - ESSENTIAL (PRIMARY) HYPERTENSION Assessment/Plan 1) Sepsis: IV antibiotics 2) Cholangitis 3) Obstructive jaundice/ Altered LFTS 4) S/P Cholecystectomy
[2017-01-24] MEDS: URSODIOL 300 MG CAPSULE PO SCH (22:40)
[2017-01-25] MEDS: PIPERACILLIN/TAZOB 3.375 GM/50 ML PRE-DOCKED IVPB SCH ×3 (02:47→18:12)
--- NOTE | 2017-01-25 08:13 | PN ---
Progress Note (short form) - Note Progress Note: Post op day#1.S/P ERCP with baloon swapping of CBD and cbd stent placement under GA uneventful.Patient stable.No any anesthesia related problem.Patient dc from the anesthesia care.
[2017-01-25] MEDS: SODIUM CHLORIDE 1,000 ML IV SCH (09:20)
[2017-01-25] MEDS ORDERED: PT OWN MED DRAWER 7, Y5N ONE ×2 (10:58→19:53)
[2017-01-25] MEDS: URSODIOL 300 MG CAPSULE PO SCH ×2 (11:01→21:05)
[2017-01-25 11:32] LABS: BASOPHIL 0.3 % (0-2.0); MCH 31.9 pg (25.7-33.7); MCHC 33.7 g/dl (32.0-36.0); MEAN CELL VOLUME 94.6 fl (80-96); MEAN PLT VOLUME 8.3 fl (7.5-11.1); PLATELET COUNT 123 K/MM3 (134-434); RDW 13.2 % (11.6-15.6)
[2017-01-25 12:11] LABS: ALBUMIN 2.6 g/dl (3.4-5.0); BILIRUBIN,TOTAL 1.3 mg/dL (0.2-1.0); CALCIUM 8.2 mg/dL (8.5-10.1); CREATININE 1.3 mg/dL (0.55-1.02); TOT PROT 5.6 g/dl (6.4-8.2)
--- NOTE | 2017-01-25 15:23 | PN ---
Progress Note, Physician History of Present Illness: stable doing much better - Current Medication List Current Medications: Active Medications Sodium Chloride (Normal Saline -) 1,000 mls @ 100 mls/hr IV ASDIR [facility] Last Admin: 01/25/17 09:20 Dose: 100 mls/hr Piperacillin Sod/Tazobactam Sod (Zosyn 3.375gm Ivpb (Pre-Docked)) 3.375 gm IVPB Q8H-IV [facility] Last Admin: 01/25/17 10:21 Dose: 3.375 gm Ursodiol (Actigal -) 300 mg PO BID [facility] Last Admin: 01/25/17 11:01 Dose: 300 mg - Objective Vital Signs: Vital Signs Temperature 98.3 F 01/25/17 14:23 Pulse Rate 71 01/25/17 14:23 Respiratory Rate 18 01/25/17 14:23 Blood Pressure 127/60 01/25/17 14:23 O2 Sat by Pulse Oximetry (%) 97 01/25/17 09:00 Constitutional: Yes: No Distress, Calm Cardiovascular: Yes: Regular Rate and Rhythm Respiratory: Yes: Regular, CTA Bilaterally Gastrointestinal: Yes: Soft, Hypoactive Bowel Sounds Musculoskeletal: Yes: WNL Extremities: Yes: WNL Neurological: Yes: Alert, Oriented Psychiatric: Yes: Alert, Oriented Labs: CBC, BMP 01/25/17 11:22 01/25/17 11:22 INR, PTT INR 1.30 (0.82-1.09) H 01/24/17 08:18 Assessment/Plan patient with clogged stent post ercp with cleaning of the stent,now doing better cholangitis elevated liver enzymes multiple medical problems dehydration plan hydration continue abx enzymes trending down patient improving
--- NOTE | 2017-01-25 15:50 | PN ---
GI Progress Note Subjective: No acute events States overall feeling well No fevers overnight - Objective Vital Signs: Vital Signs Temperature 98.3 F 01/25/17 14:23 Pulse Rate 71 01/25/17 14:23 Respiratory Rate 18 01/25/17 14:23 Blood Pressure 127/60 01/25/17 14:23 O2 Sat by Pulse Oximetry (%) 97 01/25/17 09:00 Constitutional: Calm Eyes: No: Sclera Icterus Cardiovascular: Yes: Regular Rate and Rhythm Respiratory: Yes: CTA Bilaterally Edema: No (No LE edema) Neurological: Yes: Alert, Oriented Labs: CBC, BMP 01/25/17 11:22 01/25/17 11:22 INR, PTT INR 1.30 (0.82-1.09) H 01/24/17 08:18 Hepatic Panel Total Bilirubin 1.3 mg/dL (0.2-1.0) H D 01/25/17 11:22 AST 87 U/L (15-37) H D 01/25/17 11:22 ALT 207 U/L (12-78) H D 01/25/17 11:22 Alkaline Phosphatase 224 U/L (45-117) H D 01/25/17 11:22 Albumin 2.6 g/dl (3.4-5.0) L 01/25/17 11:22 Problem List - Problems (1) Cholangitis Assessment/Plan: Secondary to clogged metallic biliary stent s/p ERCP with placement of pigtail stent through existing metal stent Clinically improved and she has defervesced Continuing antibiotics per ID Monitor LFTs Code(s): K83.0 - CHOLANGITIS
--- NOTE | 2017-01-25 23:01 | PN ---
Progress Note, Physician Chief Complaint: Pt has no fever today Post procedure doing well History of Present Illness: S/P ERCP - Current Medication List Current Medications: Active Medications Sodium Chloride (Normal Saline -) 1,000 mls @ 100 mls/hr IV ASDIR [facility] Last Admin: 01/25/17 09:20 Dose: 100 mls/hr Piperacillin Sod/Tazobactam Sod (Zosyn 3.375gm Ivpb (Pre-Docked)) 3.375 gm IVPB Q8H-IV [facility] Last Admin: 01/25/17 18:12 Dose: 3.375 gm Ursodiol (Actigal -) 300 mg PO BID [facility] Last Admin: 01/25/17 21:05 Dose: 300 mg - Objective Vital Signs: Vital Signs Temperature 97.9 F 01/25/17 17:32 Pulse Rate 82 01/25/17 17:32 Respiratory Rate 18 01/25/17 17:32 Blood Pressure 131/80 01/25/17 17:32 O2 Sat by Pulse Oximetry (%) 97 01/25/17 09:00 Constitutional: Yes: No Distress Eyes: Yes: Conjunctiva Clear HENT: Yes: Atraumatic, Normocephalic Neck: Yes: Supple, Trachea Midline Cardiovascular: Yes: Regular Rate and Rhythm, S1, S2 Respiratory: Yes: Regular, CTA Bilaterally Gastrointestinal: Yes: Normal Bowel Sounds, Soft ...Rectal Exam: Yes: Deferred Musculoskeletal: Yes: Joint Stiffness, Muscle Weakness Extremities: Yes: WNL Edema: No Peripheral Pulses WNL: No Neurological: Yes: Alert, Oriented, Babinski negative, Cran Nerves II-XII Intact Labs: CBC, BMP 01/25/17 11:22 01/25/17 11:22 INR, PTT INR 1.30 (0.82-1.09) H 01/24/17 08:18 Problem List - Problems (1) Sepsis Code(s): A41.9 - SEPSIS, UNSPECIFIED ORGANISM (2) Cholangitis Code(s): K83.0 - CHOLANGITIS (3) Obstructive jaundice Code(s): K83.8 - OTHER SPECIFIED DISEASES OF BILIARY TRACT (4) HTN (hypertension) Code(s): I10 - ESSENTIAL (PRIMARY) HYPERTENSION Assessment/Plan 1) Sepsis: IV antibiotics 2) Cholangitis: Discussed with ID Pt need 5 days of IV Antibiotics 3) Obstructive jaundice/ Altered LFTS 4) S/P Cholecystectomy
[2017-01-26] MEDS: PIPERACILLIN/TAZOB 3.375 GM/50 ML PRE-DOCKED IVPB SCH ×3 (03:43→17:48)
[2017-01-26] MEDS: D5-1/2NS+10 MEQ KCL - 1,000 ML IV SCH (07:49)
[2017-01-26 08:09] LABS: BASOPHIL 0.2 % (0-2.0); EOSINOPHIL 0.3 % (0-4.5); MCH 31.8 pg (25.7-33.7); MCHC 33.4 g/dl (32.0-36.0); MEAN CELL VOLUME 95.1 fl (80-96); NEUTROPHILS 61.7 % (42.8-82.8); PLATELET COUNT 113 K/MM3 (134-434); RDW 13.1 % (11.6-15.6)
[2017-01-26 08:11] LABS: ALBUMIN 2.6 g/dl (3.4-5.0); CALCIUM 8.2 mg/dL (8.5-10.1)
[2017-01-26 08:14] LABS: CREATININE 1.2 mg/dL (0.55-1.02); TOT PROT 5.3 g/dl (6.4-8.2)
[2017-01-26] MEDS: URSODIOL 300 MG CAPSULE PO SCH ×2 (10:30→22:40)
[2017-01-26] MEDS: amLODIPine BESYLATE 5 MG TABLET (FP) PO SCH (10:30)
--- NOTE | 2017-01-26 15:25 | PN ---
Progress Note, Physician History of Present Illness: post ercp patient doing well no issues - Current Medication List Current Medications: Active Medications Amlodipine Besylate (Norvasc -) 5 mg PO DAILY [facility] Last Admin: 01/26/17 10:30 Dose: 5 mg Potassium Chloride/Dextrose/Sod Cl (D5-1/2ns+10 Meq Kcl -) 1,000 mls @ 60 mls/ hr IV ASDIR [facility] Last Admin: 01/26/17 07:49 Dose: 60 mls/hr Piperacillin Sod/Tazobactam Sod (Zosyn 3.375gm Ivpb (Pre-Docked)) 3.375 gm IVPB Q8H-IV [facility] Last Admin: 01/26/17 10:30 Dose: 3.375 gm Ursodiol (Actigal -) 300 mg PO BID [facility] Last Admin: 01/26/17 10:30 Dose: 300 mg - Objective Vital Signs: Vital Signs Temperature 98.5 F 01/26/17 14:41 Pulse Rate 62 01/26/17 14:41 Respiratory Rate 18 01/26/17 14:41 Blood Pressure 154/56 01/26/17 14:41 O2 Sat by Pulse Oximetry (%) 97 01/26/17 10:20 Constitutional: Yes: No Distress, Calm Cardiovascular: Yes: Regular Rate and Rhythm Respiratory: Yes: Regular, CTA Bilaterally Gastrointestinal: Yes: Normal Bowel Sounds, Soft Musculoskeletal: Yes: WNL Extremities: Yes: WNL Neurological: Yes: Alert, Oriented Psychiatric: Yes: Alert Labs: CBC, BMP 01/26/17 06:00 01/26/17 06:00 INR, PTT INR 1.30 (0.82-1.09) H 01/24/17 08:18 Assessment/Plan patient with clogged stent post ercp with cleaning of the stent,now doing better cholangitis elevated liver enzymes multiple medical problems dehydration plan hydration continue abx enzymes trending down patient improving will stop iv abx on sunday morning and switch to po
--- NOTE | 2017-01-26 19:34 | PN ---
Progress Note, Physician Chief Complaint: Pt is doing well Afebrile History of Present Illness: Pt is doing well Daughter wanted to take her home Discussed with ID and spoke with Daughter and Pt. - Current Medication List Current Medications: Active Medications Amlodipine Besylate (Norvasc -) 5 mg PO DAILY [facility] Last Admin: 01/26/17 10:30 Dose: 5 mg Potassium Chloride/Dextrose/Sod Cl (D5-1/2ns+10 Meq Kcl -) 1,000 mls @ 60 mls/ hr IV ASDIR [facility] Last Admin: 01/26/17 07:49 Dose: 60 mls/hr Piperacillin Sod/Tazobactam Sod (Zosyn 3.375gm Ivpb (Pre-Docked)) 3.375 gm IVPB Q8H-IV [facility] Last Admin: 01/26/17 17:48 Dose: 3.375 gm Ursodiol (Actigal -) 300 mg PO BID [facility] Last Admin: 01/26/17 10:30 Dose: 300 mg - Objective Vital Signs: Vital Signs Temperature 99.1 F 01/26/17 17:44 Pulse Rate 64 01/26/17 17:44 Respiratory Rate 18 01/26/17 17:44 Blood Pressure 145/66 01/26/17 17:44 O2 Sat by Pulse Oximetry (%) 97 01/26/17 10:20 Constitutional: Yes: No Distress Eyes: Yes: Conjunctiva Clear HENT: Yes: Atraumatic, Normocephalic Neck: Yes: Supple, Trachea Midline Cardiovascular: Yes: Regular Rate and Rhythm, S1, S2 Respiratory: Yes: Regular, CTA Bilaterally Gastrointestinal: Yes: Normal Bowel Sounds, Soft ...Rectal Exam: Yes: Deferred Musculoskeletal: Yes: Joint Stiffness, Muscle Weakness Edema: No Peripheral Pulses WNL: (PVD) Neurological: Yes: Alert, Oriented, Cran Nerves II-XII Intact Labs: CBC, BMP 01/26/17 06:00 01/26/17 06:00 INR, PTT INR 1.30 (0.82-1.09) H 01/24/17 08:18 Problem List - Problems (1) Sepsis Code(s): A41.9 - SEPSIS, UNSPECIFIED ORGANISM (2) Cholangitis Code(s): K83.0 - CHOLANGITIS (3) Obstructive jaundice Code(s): K83.8 - OTHER SPECIFIED DISEASES OF BILIARY TRACT (4) HTN (hypertension) Code(s): I10 - ESSENTIAL (PRIMARY) HYPERTENSION Assessment/Plan 1) Sepsis: IV antibiotics 2) Cholangitis: Discussed with ID Pt need 5 days of IV Antibiotics 3) Obstructive jaundice/ Altered LFTS 4) S/P Cholecystectomy
[2017-01-26] MEDS ORDERED: PT OWN MED DRAWER 7, Y5N ONE (21:11)
[2017-01-27] MEDS: PIPERACILLIN/TAZOB 3.375 GM/50 ML PRE-DOCKED IVPB SCH ×3 (01:18→17:27)
[2017-01-27] MEDS: D5-1/2NS+10 MEQ KCL - 1,000 ML IV SCH (01:18)
[2017-01-27] MEDS ORDERED: PT OWN MED DRAWER 7, Y5N ONE ×2 (10:33→21:15)
[2017-01-27] MEDS: URSODIOL 300 MG CAPSULE PO SCH ×2 (10:37→21:34)
[2017-01-27] MEDS: amLODIPine BESYLATE 5 MG TABLET (FP) PO SCH (10:37)
--- NOTE | 2017-01-27 16:31 | PN ---
Progress Note, Physician History of Present Illness: post ercp patient doing well no issues patient comfortable - Current Medication List Current Medications: Active Medications Amlodipine Besylate (Norvasc -) 5 mg PO DAILY [facility] Last Admin: 01/27/17 10:37 Dose: 5 mg Potassium Chloride/Dextrose/Sod Cl (D5-1/2ns+10 Meq Kcl -) 1,000 mls @ 60 mls/ hr IV ASDIR [facility] Last Admin: 01/27/17 01:18 Dose: 60 mls/hr Piperacillin Sod/Tazobactam Sod (Zosyn 3.375gm Ivpb (Pre-Docked)) 3.375 gm IVPB Q8H-IV [facility] Last Admin: 01/27/17 10:36 Dose: 3.375 gm Ursodiol (Actigal -) 300 mg PO BID [facility] Last Admin: 01/27/17 10:37 Dose: 300 mg - Objective Vital Signs: Vital Signs Temperature 98.8 F 01/27/17 14:00 Pulse Rate 62 01/27/17 14:00 Respiratory Rate 19 01/27/17 14:00 Blood Pressure 144/57 01/27/17 14:00 O2 Sat by Pulse Oximetry (%) 95 01/27/17 09:00 Constitutional: Yes: No Distress, Calm Cardiovascular: Yes: Regular Rate and Rhythm Respiratory: Yes: Regular, CTA Bilaterally Gastrointestinal: Yes: Normal Bowel Sounds, Soft Musculoskeletal: Yes: WNL Extremities: Yes: WNL Neurological: Yes: Alert, Oriented Psychiatric: Yes: Alert, Oriented Labs: CBC, BMP 01/26/17 06:00 01/26/17 06:00 INR, PTT INR 1.30 (0.82-1.09) H 01/24/17 08:18 Assessment/Plan patient with clogged stent post ercp with cleaning of the stent,now doing better cholangitis elevated liver enzymes multiple medical problems dehydration plan hydration continue abx continue monitoring rest as per primary team
--- NOTE | 2017-01-28 00:01 | PN ---
Progress Note, Physician Chief Complaint: Pt is doing well Afebrile History of Present Illness: Pt is doing well Daughter wanted to take her home Discussed with ID and spoke with Daughter and Pt. - Current Medication List Current Medications: Active Medications Amlodipine Besylate (Norvasc -) 5 mg PO DAILY [facility] Last Admin: 01/27/17 10:37 Dose: 5 mg Potassium Chloride/Dextrose/Sod Cl (D5-1/2ns+10 Meq Kcl -) 1,000 mls @ 60 mls/ hr IV ASDIR [facility] Last Admin: 01/27/17 01:18 Dose: 60 mls/hr Piperacillin Sod/Tazobactam Sod (Zosyn 3.375gm Ivpb (Pre-Docked)) 3.375 gm IVPB Q8H-IV [facility] Last Admin: 01/27/17 17:27 Dose: 3.375 gm Ursodiol (Actigal -) 300 mg PO BID [facility] Last Admin: 01/27/17 21:34 Dose: 300 mg - Objective Vital Signs: Vital Signs Temperature 98.5 F 01/27/17 18:35 Pulse Rate 65 01/27/17 18:35 Respiratory Rate 18 01/27/17 21:00 Blood Pressure 145/70 01/27/17 18:35 O2 Sat by Pulse Oximetry (%) 96 01/27/17 21:00 Constitutional: Yes: No Distress Eyes: Yes: Conjunctiva Clear, EOM Intact HENT: Yes: Atraumatic, Normocephalic Cardiovascular: Yes: Regular Rate and Rhythm, S1, S2 Respiratory: Yes: Regular, CTA Bilaterally Gastrointestinal: Yes: Normal Bowel Sounds, Soft Edema: No Neurological: Yes: Alert, Oriented, Cran Nerves II-XII Intact Labs: CBC, BMP 01/26/17 06:00 01/26/17 06:00 INR, PTT INR 1.30 (0.82-1.09) H 01/24/17 08:18 Problem List - Problems (1) Sepsis Code(s): A41.9 - SEPSIS, UNSPECIFIED ORGANISM (2) Cholangitis Code(s): K83.0 - CHOLANGITIS (3) Obstructive jaundice Code(s): K83.8 - OTHER SPECIFIED DISEASES OF BILIARY TRACT (4) HTN (hypertension) Code(s): I10 - ESSENTIAL (PRIMARY) HYPERTENSION Assessment/Plan 1) Sepsis: IV antibiotics 2) Cholangitis: Discussed with ID Pt need 5 days of IV Antibiotics 3) Obstructive jaundice/ Altered LFTS 4) S/P Cholecystectomy
[2017-01-28] MEDS: D5-1/2NS+10 MEQ KCL - 1,000 ML IV SCH (01:15)
[2017-01-28] MEDS: PIPERACILLIN/TAZOB 3.375 GM/50 ML PRE-DOCKED IVPB SCH ×3 (01:16→17:53)
[2017-01-28] MEDS ORDERED: PT OWN MED DRAWER 7, Y5N ONE ×2 (08:53→23:29)
[2017-01-28] MEDS: amLODIPine BESYLATE 5 MG TABLET (FP) PO SCH (10:03)
[2017-01-28] MEDS: URSODIOL 300 MG CAPSULE PO SCH ×2 (10:03→23:30)
[2017-01-28] MEDS ORDERED: D5-1/2NS+10 MEQ KCL - 1,000 ML IV SCH (14:24)
[2017-01-28] MEDS ORDERED: POTASSIUM CHLORIDE 10 MEQ in DEXTROSE 5%-0.45% SALINE 1,000 ML IVPB SCH (15:45)
--- NOTE | 2017-01-28 17:29 | PN ---
Progress Note, Physician History of Present Illness: patient stable no new issues doing well - Current Medication List Current Medications: Active Medications Amlodipine Besylate (Norvasc -) 5 mg PO DAILY [facility] Last Admin: 01/28/17 10:03 Dose: 5 mg Potassium Chloride 10 meq/ (Dextrose/Sodium Chloride) 1,005 mls @ 60 mls/hr IVPB Q16H [facility] Piperacillin Sod/Tazobactam Sod (Zosyn 3.375gm Ivpb (Pre-Docked)) 3.375 gm IVPB Q8H-IV [facility] Last Admin: 01/28/17 09:04 Dose: 3.375 gm Ursodiol (Actigal -) 300 mg PO BID [facility] Last Admin: 01/28/17 10:03 Dose: 300 mg - Objective Vital Signs: Vital Signs Temperature 98.2 F 01/28/17 13:58 Pulse Rate 69 01/28/17 13:58 Respiratory Rate 18 01/28/17 13:58 Blood Pressure 143/69 01/28/17 13:58 O2 Sat by Pulse Oximetry (%) 95 01/28/17 09:00 Constitutional: Yes: No Distress, Calm Cardiovascular: Yes: Regular Rate and Rhythm Respiratory: Yes: Regular, CTA Bilaterally Gastrointestinal: Yes: Normal Bowel Sounds, Soft Musculoskeletal: Yes: WNL Extremities: Yes: WNL Integumentary: Yes: WNL Neurological: Yes: Alert, Oriented Psychiatric: Yes: Alert, Oriented Labs: CBC, BMP 01/26/17 06:00 01/26/17 06:00 INR, PTT INR 1.30 (0.82-1.09) H 01/24/17 08:18 Assessment/Plan patient with clogged stent post ercp with cleaning of the stent,now doing better cholangitis elevated liver enzymes multiple medical problems dehydration plan hydration continue abx continue monitoring rest as per primary team can switch to oral augmentin 500mg twice a day for 5 more days from tomorrow
--- NOTE | 2017-01-28 18:08 | DS ---
Physical Examination Vital Signs: Vital Signs Temperature 98.2 F 01/28/17 13:58 Pulse Rate 69 01/28/17 13:58 Respiratory Rate 18 01/28/17 13:58 Blood Pressure 143/69 01/28/17 13:58 O2 Sat by Pulse Oximetry (%) 95 01/28/17 09:00 Constitutional: Yes: No Distress Eyes: Yes: Conjunctiva Clear HENT: Yes: Atraumatic, Normocephalic Neck: Yes: Supple, Trachea Midline Cardiovascular: Yes: Regular Rate and Rhythm, S1, S2 Respiratory: Yes: Regular, CTA Bilaterally Gastrointestinal: Yes: Normal Bowel Sounds, Soft Edema: No Peripheral Pulses WNL: No Labs: CBC, BMP 01/26/17 06:00 01/26/17 06:00 Discharge Summary Reason For Visit: ABDOMINAL PAIN FEVER Current Active Problems Abdominal pain (Acute) Cholangitis (Acute) Fever (Acute) HTN (hypertension) (Acute) Obstructive jaundice (Acute) Sepsis (Acute) - Instructions Referrals: Edna Kelly MD [Primary Care Provider] - - Home Medications Comprehensive Discharge Medication List: Ambulatory Orders Amlodipine Besylate 5 mg PO DAILY #1 tablet 10/19/16 Pt will have Augmentin 500 PO BID for7 days Pt will Follow in my office Next week 3 PM
--- NOTE | 2017-01-28 18:08 | PN ---
Progress Note, Physician Chief Complaint: Pt is doing well Afebrile History of Present Illness: Pt is doing well Daughter wanted to take her home Discussed with ID and spoke with Daughter and Pt. - Current Medication List Current Medications: Active Medications Amlodipine Besylate (Norvasc -) 5 mg PO DAILY [facility] Last Admin: 01/28/17 10:03 Dose: 5 mg Potassium Chloride 10 meq/ (Dextrose/Sodium Chloride) 1,005 mls @ 60 mls/hr IVPB Q16H [facility] Piperacillin Sod/Tazobactam Sod (Zosyn 3.375gm Ivpb (Pre-Docked)) 3.375 gm IVPB Q8H-IV [facility] Last Admin: 01/28/17 17:53 Dose: 3.375 gm Ursodiol (Actigal -) 300 mg PO BID [facility] Last Admin: 01/28/17 10:03 Dose: 300 mg - Objective Vital Signs: Vital Signs Temperature 98.2 F 01/28/17 13:58 Pulse Rate 69 01/28/17 13:58 Respiratory Rate 18 01/28/17 13:58 Blood Pressure 143/69 01/28/17 13:58 O2 Sat by Pulse Oximetry (%) 95 01/28/17 09:00 Constitutional: Yes: No Distress Eyes: Yes: Conjunctiva Clear, EOM Intact HENT: Yes: Atraumatic, Normocephalic Neck: Yes: Supple, Trachea Midline Cardiovascular: Yes: Regular Rate and Rhythm, S1, S2 Respiratory: Yes: Regular, CTA Bilaterally Gastrointestinal: Yes: Normal Bowel Sounds, Soft Edema: No Labs: CBC, BMP 01/26/17 06:00 01/26/17 06:00 INR, PTT INR 1.30 (0.82-1.09) H 01/24/17 08:18 Problem List - Problems (1) Sepsis Code(s): A41.9 - SEPSIS, UNSPECIFIED ORGANISM (2) Cholangitis Code(s): K83.0 - CHOLANGITIS (3) Obstructive jaundice Code(s): K83.8 - OTHER SPECIFIED DISEASES OF BILIARY TRACT (4) HTN (hypertension) Code(s): I10 - ESSENTIAL (PRIMARY) HYPERTENSION Assessment/Plan 1) Sepsis: IV antibiotics 2) Cholangitis: Discussed with ID Pt need 5 days of IV Antibiotics 3) Obstructive jaundice/ Altered LFTS 4) S/P Cholecystectomy
[2017-01-29] MEDS: PIPERACILLIN/TAZOB 3.375 GM/50 ML PRE-DOCKED IVPB SCH ×2 (02:45→09:03)
[2017-01-29] MEDS: amLODIPine BESYLATE 5 MG TABLET (FP) PO SCH (09:03)
[2017-01-29] MEDS ORDERED: PT OWN MED DRAWER 7, Y5N ONE (09:49)
[2017-01-29] MEDS: URSODIOL 300 MG CAPSULE PO SCH (10:15)
[2017-01-29 14:45] VITALS: BP 132/64; PULSE 20; TEMP 98.5
--- NOTE | 2017-01-29 14:58 | PN ---
Progress Note, Physician History of Present Illness: doing well no issues has remained afebrile and stable - Current Medication List Current Medications: Active Medications Amlodipine Besylate (Norvasc -) 5 mg PO DAILY [facility] Last Admin: 01/29/17 09:03 Dose: 5 mg Piperacillin Sod/Tazobactam Sod (Zosyn 3.375gm Ivpb (Pre-Docked)) 3.375 gm IVPB Q8H-IV [facility] Last Admin: 01/29/17 09:03 Dose: 3.375 gm Ursodiol (Actigal -) 300 mg PO BID [facility] Last Admin: 01/29/17 10:15 Dose: 300 mg - Objective Vital Signs: Vital Signs Temperature 98.5 F 01/29/17 14:43 Pulse Rate 20 L 01/29/17 14:43 Respiratory Rate 20 01/29/17 14:43 Blood Pressure 132/64 01/29/17 14:43 O2 Sat by Pulse Oximetry (%) 98 01/29/17 12:27 Constitutional: Yes: No Distress, Calm HENT: Yes: Atraumatic Cardiovascular: Yes: Regular Rate and Rhythm Respiratory: Yes: Regular, CTA Bilaterally Gastrointestinal: Yes: Normal Bowel Sounds, Soft Musculoskeletal: Yes: WNL Extremities: Yes: WNL Integumentary: Yes: WNL Neurological: Yes: Alert, Oriented Labs: CBC, BMP 01/26/17 06:00 01/26/17 06:00 INR, PTT INR 1.30 (0.82-1.09) H 01/24/17 08:18 Assessment/Plan patient with clogged stent post ercp with cleaning of the stent,now doing better cholangitis elevated liver enzymes multiple medical problems dehydration plan augmentin for 5 more days rest continue as per the team if fever or any other issues to immediately come to the hospital/primary
--- NOTE | 2017-01-29 14:59 | PN ---
Progress Note, Physician - Current Medication List Current Medications: Active Medications Amlodipine Besylate (Norvasc -) 5 mg PO DAILY [facility] Last Admin: 01/29/17 09:03 Dose: 5 mg Piperacillin Sod/Tazobactam Sod (Zosyn 3.375gm Ivpb (Pre-Docked)) 3.375 gm IVPB Q8H-IV [facility] Last Admin: 01/29/17 09:03 Dose: 3.375 gm Ursodiol (Actigal -) 300 mg PO BID [facility] Last Admin: 01/29/17 10:15 Dose: 300 mg - Objective Vital Signs: Vital Signs Temperature 98.5 F 01/29/17 14:43 Pulse Rate 20 L 01/29/17 14:43 Respiratory Rate 20 01/29/17 14:43 Blood Pressure 132/64 01/29/17 14:43 O2 Sat by Pulse Oximetry (%) 98 01/29/17 12:27 Labs: CBC, BMP 01/26/17 06:00 01/26/17 06:00 INR, PTT INR 1.30 (0.82-1.09) H 01/24/17 08:18 Problem List - Problems (1) Sepsis Code(s): A41.9 - SEPSIS, UNSPECIFIED ORGANISM (2) Cholangitis Code(s): K83.0 - CHOLANGITIS (3) Obstructive jaundice Code(s): K83.8 - OTHER SPECIFIED DISEASES OF BILIARY TRACT (4) HTN (hypertension) Code(s): I10 - ESSENTIAL (PRIMARY) HYPERTENSION
== END 2017-01-29 15:40 | disposition home or self-care (01) | DRG 871 ==
LOC: JER 16:02 → JERBED 01-24 06:29 → J5S 01-24 10:13
PROVIDERS: ADMIT Internal Medicine; ATTEND Internal Medicine
PROC: 0F798DZ Dilation of Common Bile Duct with Intraluminal Device, Via Natural or Artificial Opening Endoscopic (ICD-10-PCS; 2017-01-24)
PROC: 0BH17EZ Insertion of Endotracheal Airway into Trachea, Via Natural or Artificial Opening (ICD-10-PCS; 2017-01-24)
PROC: 5A1935Z Respiratory Ventilation, Less than 24 Consecutive Hours (ICD-10-PCS; 2017-01-24)
PROC: 0FC98ZZ Extirpation of Matter from Common Bile Duct, Via Natural or Artificial Opening Endoscopic (ICD-10-PCS; principal; 2017-01-24 13:00)
DX: A41.9 Sepsis, unspecified organism (principal); K83.1 Obstruction of bile duct; T85.590A Other mechanical complication of bile duct prosthesis, initial encounter; K83.0 Cholangitis; J95.89 Other postprocedural complications and disorders of respiratory system, not elsewhere classified; I10 Essential (primary) hypertension; J45.909 Unspecified asthma, uncomplicated; M19.90 Unspecified osteoarthritis, unspecified site; D64.9 Anemia, unspecified; K21.9 Gastro-esophageal reflux disease without esophagitis; E86.0 Dehydration; Y83.8 Other surgical procedures as the cause of abnormal reaction of the patient, or of later complication, without mention of misadventure at the time of the procedure; Z85.038 Personal history of other malignant neoplasm of large intestine; Z96.651 Presence of right artificial knee joint; Z86.12 Personal history of poliomyelitis; R09.02 Hypoxemia
CPT/HCPCS: 36415; 71010-TC; 74177-TC; 76000-TC; 80053; 81003; 81015; 82550; 83605; 84484; 85025; 85610; 85730; 87040; 87086; 93005; 93010; 94002; 94760; 99285-25

== ENCOUNTER 2017-04-04 13:18 | Day surgery (SDC) | payer OTHER ==
[2017-04-03 14:20] VITALS: BMI 25.2
[2017-04-04] MEDS ORDERED: ONDANSETRON 4 MG/2 ML VIAL ONE (13:57)
[2017-04-04] MEDS ORDERED: PROPOFOL 20 ML ONE (13:57)
[2017-04-04] MEDS ORDERED: SUCCINYLCHOLINE CHLORIDE 200 MG/10 ML VIAL ONE (13:57)
[2017-04-04] MEDS ORDERED: ceFAZolin SODIUM 1 GM VIAL ONE (14:21)
[2017-04-04] MEDS ORDERED: ONDANSETRON 4 MG/2 ML VIAL IVPUSH PRN (16:02)
[2017-04-04] MEDS ORDERED: oxyCODONE HCL 5 MG TABLET PO PRN (16:02)
[2017-04-04] MEDS ORDERED: LACTATED RINGERS SOLUTION 1,000 ML IV SCH (16:15)
[2017-04-04] MEDS ORDERED: HYDROmorphone HCL CARPU-JECT 2 MG/1 ML DISP.SYRIN ONE (16:48)
[2017-04-04] MEDS ORDERED: HYDROmorphone HCL CARPU-JECT 1 MG/1 ML DISP.SYRIN IVPUSH PRN (16:53)
[2017-04-04] MEDS ORDERED: HYDROmorphone HCL/PF 1 MG/ML VIAL (FOR PYXIS CHARGING ONLY) IVPUSH ONE (17:45)
[2017-04-04 18:32] VITALS: BP 138/60
[2017-04-04 18:42] VITALS: PULSE 64; TEMP 97.8
--- NOTE | 2017-04-06 09:28 | PATH ---
Surgical Pathology Report Patient Name: JOLYNN THURMAN Med. Rec. #: [id number] /Age/Gender: 1930 (Age: 86) / F Account: [id number] Location: [facility]-ENDOSCOPY Taken: 04/04/2017 Received: 04/05/2017 Reported: 04/06/2017 Physicians: Ernie Balderas M.D. Specimen(s) Received FOREIGN BODY PLASTIC SENT Clinical History Clogged self expanding metal stent in bile duct Final Diagnosis [employer]Y [employer], BILE DUCT, REMOVAL: BILIARY STENT (GROSS ONLY). Electronically Signed Hitesh Maciel M.D. Gross Description Received fresh labeled with the patient's name and indicated on the requisition to be a stent, is a 17 cm in length blue, coiled portion of tubing, consistent with a stent. No soft tissue is present. No sections are submitted, gross only. /04/05/2017 saudi04/05/2017
== END 2017-04-04 18:30 | disposition home or self-care (01) ==
LOC: JASU-ENDO 13:18
PROVIDERS: ATTEND Internal Medicine Gastroenterology
PROC: 0F798DZ Dilation of Common Bile Duct with Intraluminal Device, Via Natural or Artificial Opening Endoscopic (ICD-10-PCS; 2017-04-04)
PROC: 0FC98ZZ Extirpation of Matter from Common Bile Duct, Via Natural or Artificial Opening Endoscopic (ICD-10-PCS; 2017-04-04)
PROC: 0F9980Z Drainage of Common Bile Duct with Drainage Device, Via Natural or Artificial Opening Endoscopic (ICD-10-PCS; 2017-04-04)
PROC: 0FPB8DZ Removal of Intraluminal Device from Hepatobiliary Duct, Via Natural or Artificial Opening Endoscopic (ICD-10-PCS; principal; 2017-04-04 14:30)
DX: K83.0 Cholangitis (principal)
CPT/HCPCS: 76001-TC; 88300-TC; 94760

== ENCOUNTER 2018-06-27 12:05 | Day surgery (SDC) | payer OTHER ==
[2018-06-26 14:46] VITALS: BMI 24.4
[2018-06-27] MEDS ORDERED: ceFAZolin SODIUM 1 GM VIAL IVPB ONE (12:48)
[2018-06-27] MEDS ORDERED: ceFAZolin SODIUM 1 GM VIAL ONE (13:38)
[2018-06-27 15:21] VITALS: TEMP 97.9
[2018-06-27 16:55] VITALS: BP 149/74; PULSE 78
== END 2018-06-27 16:56 | disposition home or self-care (01) ==
LOC: JASU-ENDO 12:05 → JOR 12:05 → JASU-ENDO 16:56
PROVIDERS: ATTEND Internal Medicine Gastroenterology
PROC: 0FC98ZZ Extirpation of Matter from Common Bile Duct, Via Natural or Artificial Opening Endoscopic (ICD-10-PCS; principal; 2018-06-27 13:00)
DX: Z48.815 Encounter for surgical aftercare following surgery on the digestive system (principal)
CPT/HCPCS: 76000-TC-FY

== ENCOUNTER 2018-12-31 10:36 | Day surgery (SDC) | payer OTHER ==
[2018-12-31 11:23] VITALS: BMI 24.0
[2018-12-31] MEDS ORDERED: CEFAZOLIN 1 GM/D5W 1 GM/50 ML BAG ONE (12:03)
[2018-12-31] MEDS ORDERED: ceFAZolin SODIUM 1 GM VIAL IVPB ONE (12:06)
[2018-12-31 12:44] VITALS: TEMP 97.6
[2018-12-31 14:20] VITALS: BP 139/60; PULSE 72
== END 2018-12-31 14:20 | disposition home or self-care (01) ==
LOC: JASU-ENDO 10:36
PROVIDERS: ATTEND Internal Medicine Gastroenterology
PROC: 0F798DZ Dilation of Common Bile Duct with Intraluminal Device, Via Natural or Artificial Opening Endoscopic (ICD-10-PCS; 2018-12-31)
PROC: 0FC98ZZ Extirpation of Matter from Common Bile Duct, Via Natural or Artificial Opening Endoscopic (ICD-10-PCS; principal; 2018-12-31 11:45)
DX: T85.898A Other specified complication of other internal prosthetic devices, implants and grafts, initial encounter (principal); K80.51 Calculus of bile duct without cholangitis or cholecystitis with obstruction
CPT/HCPCS: 74330-TC

== ENCOUNTER 2019-04-17 14:16 | Inpatient (IN) | payer OTHER ==
--- NOTE | 2019-04-17 14:25 | PDOC ---
Rapid Medical Evaluation Time Seen by Provider: 04/17/19 14:19 Medical Evaluation: Allergies Allergy/AdvReac Type Severity Reaction Status Date / Time No Known Allergies Allergy Verified 01/23/17 16:21 04/17/19 14:19 I have performed a brief in-person evaluation of this patient. The patient presents with a chief complaint of: Gallbladder / abd pain, + chill and rigors started ~ [address] Balderas sent for evaluation Pertinent physical exam findings: pale/ mild abd pain I have ordered the following: labs,, Abd pain The patient will proceed to the ED for further evaluation. Discharge Disposition - Referrals Referrals: Ernie Balderas MD [Primary Care Provider] - - Patient Instructions - Post Discharge Activity
[2019-04-17 16:13] LABS: BASO % 0.2 % (0-2.0); EOS % 0.1 % (0-4.5); HEMATOCRIT 39.3 % (32.4-45.2); LYMPH % 3.9 % (8-40); MCH 31.3 pg (25.7-33.7); MCHC 33.2 g/dl (32.0-36.0); MEAN CELL VOLUME 94.3 fl (80-96); MEAN PLT VOLUME 9.1 fl (7.5-11.1); MONO % 5.4 % (3.8-10.2); NEUT % 90.4 % (42.8-82.8); PLATELET COUNT 114 K/MM3 (134-434); RBC 4.17 M/mm3 (3.60-5.2); RDW 13.8 % (11.6-15.6); WHITE BLOOD COUNT 7.4 K/mm3 (4.0-10.0)
--- NOTE | 2019-04-17 16:15 | PDOC ---
History of Present Illness - General Chief Complaint: Pain Stated Complaint: SENT BY PCP Time Seen by Provider: 04/17/19 14:19 - History of Present Illness Initial Comments: 04/17/19 16:14 86 year old female presenting with family, with a significant past medical history of HTN, arthritis, left lower extremity atrophy, asthma and colon CA s/ p resection, as well as cholecystectomy s/p complication requiring biliary stent who presents to the emergency department for nausea, vomiting, chills and abdominal pain after having breakfast this morning. She took 2 advils around 11am and felt somewhat better but she was still shaking so she called her daughter at 2pm to take her to the ER. They called Dr. Balderas who told them to go immediately to the ER where he would see them. Patient has recurrent problems with her biliary stent which is a metal, permanent mesh that requires declogging every 2-3 months. Last time the stent was clogged the patient became septic and was told to go to the ER whenever symptoms started to appear. Patient is now comfortable, no fever, chill, nausea or vomiting. Past History - Past Medical History Allergies/Adverse Reactions: Allergies Allergy/AdvReac Type Severity Reaction Status Date / Time No Known Allergies Allergy Verified 04/17/19 14:23 Home Medications: Ambulatory Orders Amlodipine Besylate [Norvasc -] 5 mg PO DAILY #0 tablet 01/29/17 Anemia: No Asthma: Yes (NO RECENT ATTACK) Cancer: Yes (CECAL COLON) Cardiac Disorders: No CVA: No COPD: No CHF: No Dementia: No Diabetes: No GI Disorders: Yes (,BILE DUCT INJURY,COLONIC MALIGNANT NEOPLASM) Disorders: No HTN: Yes Hypercholesterolemia: No Liver Disease: No Seizures: No Thyroid Disease: No - Surgical History Abdominal Surgery: Yes (RT HEMICOLECTOMY, REVERSAL OF ILEOSTOMY) Appendectomy: No Cardiac Surgery: No Cholecystectomy: Yes (biliary leak-01/10-s/p ERCP/stent pig tail drainage) Lung Surgery: No Neurologic Surgery: No Orthopedic Surgery: Yes (CARPAL TUNNEL RIGHT; RT KNEE REPLACEMENT; ROTATOR CUFF) - Suicide/Smoking/Psychosocial Hx Smoking History: Never smoked Have you smoked in the past 12 months: No Number of Cigarettes Smoked Daily: 0 Information on smoking cessation initiated: No Hx Alcohol Use: No Drug/Substance Use Hx: No Substance Use Type: None Hx Substance Use Treatment: No Review of Systems - Review of Systems Able to Perform ROS?: Yes Is the patient limited Yi proficient: No Constitutional: Yes: See HPI, Chills HEENTM: No: Symptoms Reported Respiratory: No: Symptoms reported Cardiac (ROS): No: Symptoms Reported ABD/GI: Yes: See HPI : No: Symptoms Reported Musculoskeletal: No: Symptoms Reported Integumentary: No: Symptoms Reported Neurological: No: Symptoms reported All Other Systems: Reviewed and Negative *Physical Exam - Vital Signs Last Vital Signs Temp Pulse Resp BP Pulse Ox 98.9 F 89 16 146/72 100 04/17/19 14:20 04/17/19 14:20 04/17/19 14:20 04/17/19 14:04/17/19 14:20 - Physical Exam General Appearance: Yes: Nourished, Appropriately Dressed. No: Apparent Distress HEENT: positive: EOMI Respiratory/Chest: positive: Lungs Clear, Normal Breath Sounds. negative: Chest Tender, Respiratory Distress Cardiovascular: positive: Regular Rate, S1, S2 Gastrointestinal/Abdominal: positive: Normal Bowel Sounds, Tender (mildly tender diffusely, chronic), Flat, Soft Extremity: positive: Normal Capillary Refill, Normal Inspection, Normal Range of Motion Integumentary: positive: Dry, Warm Neurologic: positive: Fully Oriented, Alert, Normal Mood/Affect, Normal Response , Motor Strength 03/02 ED Treatment Course - LABORATORY CBC & Chemistry Diagram: 04/17/19 15:45 04/17/19 15:45 - RADIOLOGY Radiology Studies Ordered: Category Date Time Status CHEST X-RAY PORTABLE* [RAD] Stat Radiology 04/17/19 15:41 Ordered Medical Decision Making - Medical Decision Making 04/17/19 18:[address] Dr. Balderas present at bedside, discouraged getting a Ct abdomen as the cause of the patient's symptoms are known. He advised to start the patient on antibiotics, pending labs. Patient asymptomatic, afebrile, no WBC , but elevated liver enzymes, bilirubin and alk phos. Consulted with Dr. Nichole, infectious disease specialist who treated the patient before, and recommended starting the patient on the same antibiotic as last admission, zosyn. Dr. Balderas will continue following the patient on the floor for ERCP and declogging. Patient admitted to hospitalist. *DC/Admit/Observation/Transfer Diagnosis at time of Disposition: Biliary stent obstruction - Discharge Dispostion Decision to Admit order: Yes - Referrals Referrals: Ernie Balderas MD [Primary Care Provider] - - Patient Instructions - Post Discharge Activity
[2019-04-17 16:30] LABS: INR 1.13 (0.83-1.09); PROTHROMBIN TIME (PATIENT) 13.3 SEC (9.7-13.0)
[2019-04-17 16:51] LABS: ALK PHOS 449 U/L (45-117); ANION GAP 6 MMOL/L (8-16); BILIRUBIN,TOTAL 3.8 mg/dL (0.2-1); BLOOD UREA NITROGEN 18.6 mg/dL (7-18); CALCIUM 8.5 mg/dL (8.5-10.1); CHLORIDE 108 mmol/L (98-107); CO2 23 mmol/L (21-32); CREATININE 0.8 mg/dL (0.55-1.3); GLUCOSE,RANDOM 91 mg/dL (74-106); LIPASE 103 U/L (73-393); POTASSIUM 4.5 mmol/L (3.5-5.1); SGOT/AST 440 U/L (15-37); SGPT/ALT 324 U/L (13-61); SODIUM 137 mmol/L (136-145); TOT PROT 7.2 g/dl (6.4-8.2)
[2019-04-17] MEDS ORDERED: PIPERACILLIN/TAZOB 4.5 GM 4.5 GM in DEXTROSE 5%-WATER 100 ML IVPB ONE (17:03)
--- NOTE | 2019-04-17 17:11 | CON.ID ---
Consult - Past Medical History Cardio/Vascular: Yes: HTN Pulmonary: Yes: Asthma Gastrointestinal: Yes: Cancer (right sided colon cancer), Other Hepatobiliary: Yes: Cholecystitis Renal/: Yes: Renal Inusuff Infectious Disease: Yes: Other Musculoskeletal: Yes: Osteoarthritis Additional Medical History: polio - Past Surgical History Past Surgical History: Yes: Cholecystectomy, Colectomy (for right sided colon cancer), Joint Replacement (right knee) - Alcohol/Substance Use Hx Alcohol Use: No History of Substance Use: reports: None - Smoking History Smoking history: Never smoked Have you smoked in the past 12 months: No Aproximately how many cigarettes per day: 0 - Social History Usual Living Arrangement: Snf ADL: Independent History of Recent Travel: No Home Medications - Allergies Allergies/Adverse Reactions: Allergies Allergy/AdvReac Type Severity Reaction Status Date / Time No Known Allergies Allergy Verified 04/17/19 14:23 - Home Medications Home Medications: Ambulatory Orders Amlodipine Besylate [Norvasc -] 5 mg PO DAILY #0 tablet 01/29/17 Physical Exam Vital Signs: Vital Signs Temperature 98.9 F 04/17/19 14:20 Pulse Rate 89 04/17/19 14:20 Respiratory Rate 16 04/17/19 14:20 Blood Pressure 146/72 04/17/19 14:20 O2 Sat by Pulse Oximetry (%) 100 04/17/19 14:20 Labs: CBC, BMP 04/17/19 15:45 04/17/19 15:45
[2019-04-17] MEDS ORDERED: PIPERACILLIN/TAZOB 3.375 GM 3.375 GM/50 ML BAG IVPB ONE (17:16)
[2019-04-17] MEDS: PIPERACILLIN/TAZOB 3.375 GM 3.375 GM in DEXTROSE 5%-WATER - 50 ML IVPB SCH ×2 (17:21→21:04)
[2019-04-17] MEDS ORDERED: D5-1/2NS+10 MEQ KCL - 10 MEQ/1,000 ML INFUS.BAG IV SCH (17:45)
--- NOTE | 2019-04-17 17:53 | HP ---
Admitting History and Physical - Primary Care Physician PCP: Cher Nation - Admission Chief Complaint: Nausea, vomiting History of Present Illness: 88 yrs old F lives at home H/O HTN, Ca Colon s/p resection, and cholecystectomy 2013 billairy temporary stent was put for Billiary leak but during Colon resection changes to metallic stent in 2014 (surgery was complications and a metal biliary stent was placed) chronically obstructed billiary stent required frequent required cleaning by ERCP (last 12/2018) , recurrent obstructive Jaundice and ascending cholangitis, today present after an episode of nausea, vomiting and chills, patient called Dr Balderas and he asked her to visit ED, patient denies any fever, abd pain, diarrhea , no c/o chest pain SOB or palpitation, evaluated by GI and ID admitted for cleaning of Metallic Billiary stent. - Past Medical History Cardiovascular: Yes: HTN Pulmonary: Yes: Asthma Gastrointestinal: Yes: Cancer (right sided colon cancer), Other Hepatobiliary: Yes: Cholecystitis Renal/: Yes: Renal Inusuff Heme/Onc: Yes: Anemia Infectious Disease: Yes: Other Musculoskeletal: Yes: Osteoarthritis - Past Surgical History Past Surgical History: Yes: Cholecystectomy, Colectomy (for right sided colon cancer), Joint Replacement (right knee) - Smoking History Smoking history: Never smoked Have you smoked in the past 12 months: No Aproximately how many cigarettes per day: 0 - Alcohol/Substance Use Hx Alcohol Use: No History of Substance Use: reports: None - Social History ADL: Independent History of Recent Travel: No Home Medications - Allergies Allergies/Adverse Reactions: Allergies Allergy/AdvReac Type Severity Reaction Status Date / Time No Known Allergies Allergy Verified 04/17/19 14:23 - Home Medications Home Medications: Ambulatory Orders Amlodipine Besylate [Norvasc -] 5 mg PO DAILY #0 tablet 01/29/17 Family Disease History - Family Disease History Family History: Unremarkable Review of Systems - Review of Systems Constitutional: reports: Chills. denies: Diaphoresis, Fever, Lethargy, Night Sweats Eyes: denies: Blurred Vision HENT: denies: Difficult Swallowing, Ear Discharge Neck: denies: Decreased ROM, Lumps, Pain on Movement Cardiovascular: denies: Chest Pain, Edema, Palpitations, Shortness of Breath Respiratory: denies: Cough, Exercise Intolerance, Hemoptysis, Orthopnea Gastrointestinal: reports: Nausea, Vomiting. denies: Abdominal Pain, Bloating, Constipation, Diarrhea Genitourinary: denies: Burning, Discharge Neurological: reports: Change in Speech. denies: Change in LOC, Confusion, Dizziness Physical Examination Vital Signs: Vital Signs Temperature 98.9 F 04/17/19 15:41 Pulse Rate 89 04/17/19 14:20 Respiratory Rate 16 04/17/19 14:20 Blood Pressure 146/72 04/17/19 14:20 O2 Sat by Pulse Oximetry (%) 100 04/17/19 14:20 Constitutional: Yes: Well Nourished, No Distress Eyes: Yes: Conjunctiva Clear, EOM Intact, Sclera Icterus, Other HENT: No: Atraumatic, Normocephalic Neck: Yes: Supple, Trachea Midline. No: Decreased ROM, Lymphadenopathy Cardiovascular: Yes: Regular Rate and Rhythm, S1. No: JVD, Gallop, Murmur, Rub Respiratory: Yes: Regular, CTA Bilaterally Gastrointestinal: Yes: Normal Bowel Sounds, Soft, Vomiting, Other (Rt UQ S/P ventral hernia repair). No: Distention Extremities: No: Calf Tenderness Edema: No Peripheral Pulses: Left Radial: 2+, Left Doralis Pedis: 2+, Right Dorsalis Pedis : 2+ Neurological: Yes: Alert, Oriented ...Motor Strength: WNL, LUE, LLE, RUE, RLE Labs: CBC, BMP 04/17/19 15:45 04/17/19 15:45 CBC,CMP WBC 7.4 K/mm3 (4.0-10.0) 04/17/19 15:45 RBC 4.17 M/mm3 (3.60-5.2) 04/17/19 15:45 Hgb 13.0 GM/dL (10.7-15.3) 04/17/19 15:45 Hct 39.3 % (32.4-45.2) D 04/17/19 15:45 MCV 94.3 fl (80-96) 04/17/19 15:45 MCH 31.3 pg (25.7-33.7) 04/17/19 15:45 MCHC 33.2 g/dl (32.0-36.0) 04/17/19 15:45 RDW 13.8 % (11.6-15.6) 04/17/19 15:45 Plt Count 114 K/MM3 (134-434) L 04/17/19 15:45 MPV 9.1 fl (7.5-11.1) 04/17/19 15:45 Absolute Neuts (auto) 6.6 K/mm3 (1.5-8.0) 04/17/19 15:45 Neutrophils % 90.4 % (42.8-82.8) H 04/17/19 15:45 Lymphocytes % 3.9 % (8-40) L D 04/17/19 15:45 Monocytes % 5.4 % (3.8-10.2) 04/17/19 15:45 Eosinophils % 0.1 % (0-4.5) 04/17/19 15:45 Basophils % 0.2 % (0-2.0) 04/17/19 15:45 Nucleated RBC % 0 % (0-0) 04/17/19 15:45 Sodium 137 mmol/L (136-145) 04/17/19 15:45 Potassium 4.5 mmol/L (3.5-5.1) 04/17/19 15:45 Chloride 108 mmol/L (98-107) H 04/17/19 15:45 Carbon Dioxide 23 mmol/L (21-32) 04/17/19 15:45 Anion Gap 6 MMOL/L (8-16) L 04/17/19 15:45 BUN 18.6 mg/dL (7-18) H 04/17/19 15:45 Creatinine 0.8 mg/dL (0.55-1.3) 04/17/19 15:45 Est GFR (CKD-EPI)AfAm 76.83 04/17/19 15:45 Est GFR (CKD-EPI)NonAf 66.29 04/17/19 15:45 Random Glucose 91 mg/dL (74-106) 04/17/19 15:45 Lactic Acid 1.9 mmol/L (0.4-2.0) 04/17/19 15:45 Calcium 8.5 mg/dL (8.5-10.1) 04/17/19 15:45 Total Bilirubin 3.8 mg/dL (0.2-1) H 04/17/19 15:45 AST 440 U/L (15-37) H 04/17/19 15:45 ALT 324 U/L (13-61) H 04/17/19 15:45 Alkaline Phosphatase 449 U/L (45-117) H 04/17/19 15:45 Troponin I < 0.02 ng/ml (0.00-0.05) 04/17/19 15:45 Total Protein 7.2 g/dl (6.4-8.2) 04/17/19 15:45 Albumin 4.0 g/dl (3.4-5.0) 04/17/19 15:45 Lipase 103 U/L (73-393) 04/17/19 15:45 Imaging - Results EKG: Report Reviewed Problem List - Problems (1) Obstructive jaundice Assessment/Plan: elevated TB SGOT/PT with nausea and vomiting , evaluted by GI NPO after midnight for ERCP cont famotidine IV Hydration, Zofran PRN Code(s): K83.8 - OTHER SPECIFIED DISEASES OF BILIARY TRACT (2) Biliary stent obstruction Assessment/Plan: Due to Bile schedule for ERCP Code(s): T85.590A - [facility] COMPL OF BILE DUCT PROSTHESIS, INITIAL ENCOUNTER (3) HTN (hypertension) Assessment/Plan: Well controlled cont Amlodipine Code(s): I10 - ESSENTIAL (PRIMARY) HYPERTENSION (4) Cholangitis Assessment/Plan: nausea, Rt UQ Tenderness , obstructive jaundice with Left shift, IV Zosyn, Billary Decompression.Schedule for ERCP Code(s): K83.0 - CHOLANGITIS * DO NOT USE *
[2019-04-17 19:24] LABS: EPI CELLS 0.4 /HPF (0-5/HPF); HYALINE CASTS 1 /lpf (0-8); URINE APPEARANCE CLEAR; URINE BILIRUBIN 1+ (NEGATIVE); URINE COLOR DK YELLOW; URINE GLUCOSE (UA) NEGATIVE (NEGATIVE); URINE KETONE NEGATIVE (NEGATIVE); URINE LEUK ESTERASE NEGATIVE (NEGATIVE); URINE NITRITE NEGATIVE (NEGATIVE); URINE PROTEIN NEGATIVE (NEGATIVE); URINE RBC 2 /hpf (0-4); URINE UROBILINOGEN 0.2 mg/dL (0.2-1.0); URINE WBC 0 /hpf (0-5)
[2019-04-17] MEDS ORDERED: PIPERACILLIN/TAZOBACTAM 3.375 GM VIAL IVPB ONE (20:44)
[2019-04-17] MEDS ORDERED: DEXTROSE 5%-WATER - 50 ML IVPB ONE (20:44)
--- NOTE | 2019-04-17 21:52 | CON.GI ---
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 She has had multiple ERCPs to declog this nonremoval stent by Dr Balderas, the last was done on 01/14. The metallic stet was placed at [facility]. 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 This ileostomy was closed in12/14. 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, initial plastic stent placed 2013 for bile leak) Renal/: Yes: Renal Inusuff, Renal Calculi Infectious Disease: Yes: Other Musculoskeletal: Yes: Osteoarthritis, Other (pseudogout) Additional Medical History: polio - Past Surgical History Past Surgical History: Yes: Arthrosocopy (right shoulder 2011), Cataract Removal (bilateral), Cholecystectomy (laparoscopic converted to open with postop bile leak), Colectomy (for right sided colon cancer), Colonoscopy, Joint Replacement (right knee) Additional Surgical History: repeated ERCPs , initially for bile leak in 2013, later had nonremoval metallic stent placed at [facility] which is prone to clogging up and has required repeated ERCP to relieve bile coagulums, last done 01/14 - Alcohol/Substance Use Hx Alcohol Use: No (quit wine after colon cancer) History of Substance Use: reports: None - Smoking History Smoking history: Never smoked Have you smoked in the past 12 months: No Aproximately how many cigarettes per day: 0 - Social History Usual Living Arrangement: Alf ADL: Independent Occupation: former domestic Place of : Other ([place]) Came to [place] (year): teenager History of Recent Travel: No Home Medications - Allergies Allergies/Adverse Reactions: Allergies Allergy/AdvReac Type Severity Reaction Status Date / Time No Known Allergies Allergy Verified 04/17/19 14:23 - Home Medications Home Medications: Ambulatory Orders Amlodipine Besylate [Norvasc -] 5 mg PO DAILY #0 tablet 01/29/17 Family Disease History - Family Disease History Family Disease History: Heart Disease: Father ( [place] 77), Other: Mother ( 88) Review of Systems - Review of Systems Constitutional: reports: Chills Eyes: reports: No Symptoms HENT: reports: No Symptoms Neck: reports: No Symptoms Cardiovascular: reports: No Symptoms Respiratory: reports: No Symptoms Gastrointestinal: reports: Abdominal Pain, Nausea, Vomiting Physical Exam-GI Vital Signs: Vital Signs Temperature 99 F 04/17/19 20:31 Pulse Rate 81 04/17/19 20:31 Respiratory Rate 18 04/17/19 20:31 Blood Pressure 129/63 04/17/19 20:31 O2 Sat by Pulse Oximetry (%) 100 04/17/19 18:49 CBC,CMP WBC 7.4 K/mm3 (4.0-10.0) 04/17/19 15:45 RBC 4.17 M/mm3 (3.60-5.2) 04/17/19 15:45 Hgb 13.0 GM/dL (10.7-15.3) 04/17/19 15:45 Hct 39.3 % (32.4-45.2) D 04/17/19 15:45 MCV 94.3 fl (80-96) 04/17/19 15:45 MCH 31.3 pg (25.7-33.7) 04/17/19 15:45 MCHC 33.2 g/dl (32.0-36.0) 04/17/19 15:45 RDW 13.8 % (11.6-15.6) 04/17/19 15:45 Plt Count 114 K/MM3 (134-434) L 04/17/19 15:45 MPV 9.1 fl (7.5-11.1) 04/17/19 15:45 Absolute Neuts (auto) 6.6 K/mm3 (1.5-8.0) 04/17/19 15:45 Neutrophils % 90.4 % (42.8-82.8) H 04/17/19 15:45 Lymphocytes % 3.9 % (8-40) L D 04/17/19 15:45 Monocytes % 5.4 % (3.8-10.2) 04/17/19 15:45 Eosinophils % 0.1 % (0-4.5) 04/17/19 15:45 Basophils % 0.2 % (0-2.0) 04/17/19 15:45 Nucleated RBC % 0 % (0-0) 04/17/19 15:45 Sodium 137 mmol/L (136-145) 04/17/19 15:45 Potassium 4.5 mmol/L (3.5-5.1) 04/17/19 15:45 Chloride 108 mmol/L (98-107) H 04/17/19 15:45 Carbon Dioxide 23 mmol/L (21-32) 04/17/19 15:45 Anion Gap 6 MMOL/L (8-16) L 04/17/19 15:45 BUN 18.6 mg/dL (7-18) H 04/17/19 15:45 Creatinine 0.8 mg/dL (0.55-1.3) 04/17/19 15:45 Est GFR (CKD-EPI)AfAm 76.83 04/17/19 15:45 Est GFR (CKD-EPI)NonAf 66.29 04/17/19 15:45 Random Glucose 91 mg/dL (74-106) 04/17/19 15:45 Lactic Acid 1.9 mmol/L (0.4-2.0) 04/17/19 15:45 Calcium 8.5 mg/dL (8.5-10.1) 04/17/19 15:45 Total Bilirubin 3.8 mg/dL (0.2-1) H 04/17/19 15:45 AST 440 U/L (15-37) H 04/17/19 15:45 ALT 324 U/L (13-61) H 04/17/19 15:45 Alkaline Phosphatase 449 U/L (45-117) H 04/17/19 15:45 Troponin I < 0.02 ng/ml (0.00-0.05) 04/17/19 15:45 Total Protein 7.2 g/dl (6.4-8.2) 04/17/19 15:45 Albumin 4.0 g/dl (3.4-5.0) 04/17/19 15:45 Lipase 103 U/L (73-393) 04/17/19 15:45 Current Medications Generic Name Dose Route Start Last Admin Trade Name Yasmani PRN Reason Stop Dose Admin Amlodipine Besylate 5 mg 04/18/19 10:00 Norvasc - PO DAILY JAVIER Piperacillin Sod/Tazobactam 50 mls @ 100 mls/hr 04/17/19 17:15 04/17/19 21:04 Sod 3.375 gm/ Dextrose IVPB 100 mls/hr Q6H-IV JAVIER Administration Protocol Potassium Chloride/Dextrose/Sod Cl 10 meq in 1,000 mls @ 100 mls/hr 04/17/19 17:45 04/17/19 21:03 D5-1/2ns+10 Meq Kcl - IV 100 mls/hr ASDIR JAVIER Administration Constitutional: Yes: Calm Eyes: Yes: Sclera Icterus HENT: Yes: Normocephalic Neck: Yes: Supple Cardiovascular: Yes: Regular Rate and Rhythm Respiratory: Yes: CTA Bilaterally Gastrointestinal Inspection: Yes: Scars (oblique RUQ and long vertical midline incision and left subumbilical ileostomy scar), Other (poor residual abdominal all tone) ...Auscultate: Yes: Normoactive Bowel Sounds ...Palpate: Yes: Soft, Other (nontender) ...Rectal Exam: Yes: Deferred Extremities: Yes: Deformity (left ankle) Edema: No Neurological: Yes: Alert, Oriented Labs: CBC, BMP 04/17/19 15:45 04/17/19 15:45 INR, PTT INR 1.13 (0.83-1.09) H 04/17/19 15:45 Problem List - Problems (1) Cholangitis Assessment/Plan: Cher has cholangitis due to a repeat occlusion of her indwelling metallic CBD stent Code(s): K83.0 - CHOLANGITIS * DO NOT USE * (2) Biliary stent obstruction Code(s): T85.590A - [facility] COMPL OF BILE DUCT PROSTHESIS, INITIAL ENCOUNTER (3) Colon cancer Code(s): C18.9 - MALIGNANT NEOPLASM OF COLON, UNSPECIFIED (4) Adenoma Code(s): D36.9 - BENIGN NEOPLASM, UNSPECIFIED SITE (5) Polio osteopathy of lower leg Code(s): M89.669 - OSTEOPATHY AFTER POLIOMYELITIS, UNSPECIFIED LOWER LEG; B91 - SEQUELAE OF POLIOMYELITIS (6) Abdominal pain Code(s): R10.9 - UNSPECIFIED ABDOMINAL PAIN Qualifiers: Abdominal location: generalized Qualified Code(s): R10.84 - Generalized abdominal pain (7) HTN (hypertension) Code(s): I10 - ESSENTIAL (PRIMARY) HYPERTENSION (8) Nausea Code(s): R11.0 - NAUSEA (9) Obstructive jaundice Code(s): K83.8 - OTHER SPECIFIED DISEASES OF BILIARY TRACT Assessment/Plan Impression: - Cholangitis and jaundice due to recurrent obstruction of indwelling metallic nonremovable CBD stent - 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 I have discussed the potential for such complications as perforation. hemorrhage and ERCP induced pancreatitis which can lead to multiorgan failure. Cher has signed an informed consent . Will proceed with ERCP tomorrow. -- Continue antibiotics -- Edgar MACK pvernight
[2019-04-17] MEDS: LACTATED RINGERS SOLUTION 1,000 ML/1,000 ML INFUS.BAG IV SCH (23:00)
[2019-04-18] MEDS ORDERED: DEXTROSE 5%-WATER - 50 ML IVPB ONE ×4 (01:03→20:01)
[2019-04-18] MEDS ORDERED: PIPERACILLIN/TAZOBACTAM 3.375 GM VIAL IVPB ONE ×4 (01:03→20:01)
[2019-04-18] MEDS: PIPERACILLIN/TAZOB 3.375 GM 3.375 GM in DEXTROSE 5%-WATER - 50 ML IVPB SCH ×4 (03:05→21:01)
[2019-04-18 04:58] VITALS: BMI 22.8
[2019-04-18] MEDS ORDERED: PT OWN MED DRAWER 7, Y5N ONE (08:06)
[2019-04-18] MEDS: amLODIPine BESYLATE 5 MG TABLET (FP) PO SCH (09:50)
[2019-04-18 10:00] LABS: BASO % 0.3 % (0-2.0); EOS % 0.3 % (0-4.5); HEMATOCRIT 36.2 % (32.4-45.2); HEMOGLOBIN 12.2 GM/dL (10.7-15.3); LYMPH % 9.7 % (8-40); MCH 31.6 pg (25.7-33.7); MCHC 33.7 g/dl (32.0-36.0); MEAN PLT VOLUME 9.5 fl (7.5-11.1); MONO % 6.8 % (3.8-10.2); NEUT % 82.9 % (42.8-82.8); PLATELET COUNT 103 K/MM3 (134-434); RBC 3.85 M/mm3 (3.60-5.2); RDW 13.5 % (11.6-15.6); WHITE BLOOD COUNT 6.6 K/mm3 (4.0-10.0)
[2019-04-18 10:14] LABS: INR 1.26 (0.83-1.09); PROTHROMBIN TIME (PATIENT) 14.9 SEC (9.7-13.0)
[2019-04-18 10:36] LABS: ALBUMIN 3.1 g/dl (3.4-5.0); BILIRUBIN,TOTAL 3.8 mg/dL (0.2-1); BLOOD UREA NITROGEN 16.4 mg/dL (7-18); CALCIUM 8.6 mg/dL (8.5-10.1); POTASSIUM 4.2 mmol/L (3.5-5.1); TOT PROT 6.2 g/dl (6.4-8.2)
--- NOTE | 2019-04-18 10:51 | PDOC ---
Documentation entered by Beau Agustin SCRIBE, acting as scribe for Yang Montalvo MD. Yang Montalvo MD: This documentation has been prepared by the Vamsi sauceda Daniel, SCRIBE, under my direction and personally reviewed by me in its entirety. I confirm that the documentation accurately reflects all work, treatment, procedures, and medical decision making performed by me. Attending Attestation - Resident Resident Name: Cr Bajwa - ANA Attending Attestation I have performed the following: I have examined & evaluated the patient, The case was reviewed & discussed with the resident, I agree w/resident's findings & plan, Exceptions are as noted - HPI HPI: 04/17/19 17:23 The patient is an 88 year old female with a past medical history of HTN, arthritis, colon cancer s/p resection, and cholecystectomy (surgery had complications and a metal biliary stent was placed) here today for evaluation of nausea and vomiting. As per Dr. Balderas, the patients biliary stent is chronically obstructed and must be cleaned every [address] Balderas instructed the patient to come to the ER the next time she felt any symptoms. Patient reports nausea, one episode of vomiting, and chills starting today. Patient denies headache, lightheadedness. Denies fever. Denies chest pain, shortness of breath. Denies diarrhea, abdominal pain. Allergies: NKA PCP: Cher Nation GI: Ernie Balderas - Physicial Exam PE: 04/17/19 17:24 GENERAL: Awake, alert, and fully oriented, in no acute distress HEAD: No signs of trauma EYES: PERRLA, EOMI, sclera anicteric, conjunctiva clear ENT: Auricles normal inspection, hearing grossly normal, nares patent, oropharynx clear without exudates. Moist mucosa NECK: Normal ROM, supple, no lymphadenopathy, JVD, or masses LUNGS: Breath sounds equal, clear to auscultation bilaterally. No wheezes, and no crackles HEART: Regular rate and rhythm, normal S1 and S2, no murmurs, rubs or gallops ABDOMEN: Soft, nontender, normoactive bowel sounds. No guarding, no rebound. No masses EXTREMITIES: Normal range of motion, no edema. No clubbing or cyanosis. No cords , erythema, or tenderness BACK: No midline spinal tenderness in cervical/thoracic/lumbar region NEUROLOGICAL: Normal speech, cranial nerves intact, negative pronator drift, 5/ 5 strength in all 4 extremities, normal sensation to light touch in all 4 extremities, normal cerebellar exam, normal gait, normal reflexes and tone SKIN: Warm, Dry, normal turgor, no rashes or lesions noted. - Medical Decision Making 04/17/19 17:10 88yo F with complicated hx biliary metal stent s/p multiple ERCPs to relieve obstruction with Dr. Balderas presents to the ED with likely recurrent obstruction. Pt has already been seen by Dr. Balderas who recommends ID consult (Dr. Nichole has ordered Zosyn) and admission for ERCP Pt well appearing, mild jaundice but no white count or vital sign abnormalities concerning for biliary sepsis Pt has been admitted for further mgmt, GI c/s, ERCP
--- NOTE | 2019-04-18 10:58 | PN ---
Physical Exam: SUBJECTIVE: Patient seen and examined resting in bed nad, afebrile hemodynamically stable. no acute events. reports mild abdominal tenderness and nausea. denies vomiting, d/c, f/c or seere pain. OBJECTIVE: Vital Signs Period Temp Pulse Resp BP Sys/Keen Pulse Ox Last 24 Hr 97.7 F-99 F 66-89 16-18 112-146/49-78 98-100 GENERAL: The patient is awake, alert, and fully oriented, in no acute distress. HEAD: Normal with no signs of trauma. EYES: PERRL, extraocular movements intact, + scleral icterus, conjunctiva clear. No ptosis. ENT: moist mucous membranes. NECK: supple. LUNGS: Breath sounds equal, clear to auscultation bilaterally HEART: Regular rate and rhythm, S1, S2 ABDOMEN: Soft, midly tender ruq, nondistended, normoactive bowel sounds, no guarding, no rebound, no hepatosplenomegaly, no masses. EXTREMITIES: 2+ pulses, warm, well-perfused, no edema. 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 Normal speech, gait not observed. PSYCH: Normal mood, normal affect. SKIN: Warm, dry Laboratory Results - last 24 hr 04/17/19 04/17/19 04/17/19 15:45 15:45 15:45 WBC 7.4 RBC 4.17 Hgb 13.0 Hct 39.3 D MCV 94.3 MCH 31.3 MCHC 33.2 RDW 13.8 Plt Count 114 L MPV 9.1 Absolute Neuts (auto) 6.6 Neutrophils % 90.4 H Lymphocytes % 3.9 L D Monocytes % 5.4 Eosinophils % 0.1 Basophils % 0.2 Nucleated RBC % 0 PT with INR 13.30 H INR 1.13 H PTT (Actin FS) Sodium 137 Potassium 4.5 Chloride 108 H Carbon Dioxide 23 Anion Gap 6 L BUN 18.6 H Creatinine 0.8 Est GFR (CKD-EPI)AfAm 76.83 Est GFR (CKD-EPI)NonAf 66.29 Random Glucose 91 Lactic Acid Calcium 8.5 Total Bilirubin 3.8 H AST 440 H ALT 324 H Alkaline Phosphatase 449 H Troponin I < 0.02 Total Protein 7.2 Albumin 4.0 Lipase 103 Urine Color Urine Appearance Urine pH Ur Specific [place] Urine Protein Urine Glucose (UA) Urine Ketones Urine Blood Urine Nitrite Urine Bilirubin Urine Urobilinogen Ur Leukocyte Esterase Urine WBC (Auto) Urine RBC (Auto) Urine Casts (Auto) U Epithel Cells (Auto) Urine Bacteria (Auto) 04/17/19 04/17/19 04/17/19 15:45 15:50 17:25 WBC RBC Hgb Hct MCV MCH MCHC RDW Plt Count MPV Absolute Neuts (auto) Neutrophils % Lymphocytes % Monocytes % Eosinophils % Basophils % Nucleated RBC % PT with INR INR PTT (Actin FS) 36.0 Sodium Potassium Chloride Carbon Dioxide Anion Gap BUN Creatinine Est GFR (CKD-EPI)AfAm Est GFR (CKD-EPI)NonAf Random Glucose Lactic Acid 1.9 Calcium Total Bilirubin AST ALT Alkaline Phosphatase Troponin I Total Protein Albumin Lipase Urine Color Dk yellow Urine Appearance Clear Urine pH 5.0 Ur Specific [place] 1.010 Urine Protein Negative Urine Glucose (UA) Negative Urine Ketones Negative Urine Blood 1+ H Urine Nitrite Negative Urine Bilirubin 1+ H Urine Urobilinogen 0.2 Ur Leukocyte Esterase Negative Urine WBC (Auto) 0 Urine RBC (Auto) 2 Urine Casts (Auto) 1 U Epithel Cells (Auto) 0.4 Urine Bacteria (Auto) 2.0 04/18/19 04/18/19 04/18/19 09:36 09:36 09:36 WBC 6.6 RBC 3.85 Hgb 12.2 Hct 36.2 MCV 94.0 MCH 31.6 MCHC 33.7 RDW 13.5 Plt Count 103 L MPV 9.5 Absolute Neuts (auto) 5.5 Neutrophils % 82.9 H Lymphocytes % 9.7 D Monocytes % 6.8 Eosinophils % 0.3 D Basophils % 0.3 Nucleated RBC % 0 PT with INR 14.90 H INR 1.26 H PTT (Actin FS) Sodium 141 Potassium 4.2 Chloride 111 H Carbon Dioxide 24 Anion Gap 6 L BUN 16.4 Creatinine 1.0 Est GFR (CKD-EPI)AfAm 58.66 Est GFR (CKD-EPI)NonAf 50.61 Random Glucose 88 Lactic Acid Calcium 8.6 Total Bilirubin 3.8 H AST 214 H ALT 277 H Alkaline Phosphatase 330 H Troponin I Total Protein 6.2 L Albumin 3.1 L Lipase 67 L Urine Color Urine Appearance Urine pH Ur Specific [place] Urine Protein Urine Glucose (UA) Urine Ketones Urine Blood Urine Nitrite Urine Bilirubin Urine Urobilinogen Ur Leukocyte Esterase Urine WBC (Auto) Urine RBC (Auto) Urine Casts (Auto) U Epithel Cells (Auto) Urine Bacteria (Auto) Active Medications Generic Name Dose Route Start Last Admin Trade Name Yasmani PRN Reason Stop Dose Admin Amlodipine Besylate 5 mg 04/18/19 10:00 04/18/19 09:50 Norvasc - PO 5 mg DAILY JAVIER Administration Piperacillin Sod/Tazobactam 50 mls @ 100 mls/hr 04/17/19 17:15 04/18/19 09:48 Sod 3.375 gm/ Dextrose IVPB 100 mls/hr Q6H-IV JAVIER Administration Protocol Lactated Ringer's 1,000 ml in 1,000 mls @ 83 mls/hr 04/17/19 22:30 04/17/19 23:00 Lactated Ringers Solution IV 83 mls/hr ASDIR JAVIER Administration ASSESSMENT/PLAN: 88 yrs old F lives at home H/O HTN, Ca Colon s/p resection, and cholecystectomy 2013 billairy temporary stent was put for Billiary leak but during Colon resection changes to metallic stent in 2014 (surgery was complications and a metal biliary stent was placed) chronically obstructed billiary stent required frequent required cleaning by ERCP (last 12/2018) , recurrent obstructive Jaundice and ascending cholangitis, today present after an episode of nausea, vomiting and chills Obstructive jaundice due to biliary stant obstruction ascending cholangitis htn colon ca s/p resection -gi eval appreciated, ERCP today 2 pm -npo -prn zofran -ID consult appreciated, continue zosyn -LR @ 83 -continue home norvasc Problem List - Problems (1) Biliary stent obstruction Code(s): T85.590A - [facility] COMPL OF BILE DUCT PROSTHESIS, INITIAL ENCOUNTER Qualifiers: Encounter type: initial encounter Qualified Code(s): T85.590A - Other mechanical complication of bile duct prosthesis, initial encounter (2) Colon cancer Code(s): C18.9 - MALIGNANT NEOPLASM OF COLON, UNSPECIFIED (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 - OSTEOPATHY AFTER POLIOMYELITIS, UNSPECIFIED LOWER LEG; B91 - SEQUELAE OF POLIOMYELITIS (4) Abdominal pain Code(s): R10.9 - UNSPECIFIED ABDOMINAL PAIN Qualifiers: Abdominal location: generalized Qualified Code(s): R10.84 - Generalized abdominal pain (5) Acute cholecystitis Code(s): K81.0 - ACUTE CHOLECYSTITIS (6) Cholangitis Code(s): K83.0 - CHOLANGITIS * DO NOT USE * (7) HTN (hypertension) Code(s): I10 - ESSENTIAL (PRIMARY) HYPERTENSION (8) Nausea Code(s): R11.0 - NAUSEA Visit type - Emergency Visit Emergency Visit: Yes ED Registration Date: 04/17/19 Care time: The patient presented to the Emergency Department on the above date and was hospitalized for further evaluation of their emergent condition. - New Patient This patient is new to me today: Yes Date on this admission: 04/18/19 - Critical Care Critical Care patient: No - Discharge Referral Referred to [facility] No
--- NOTE | 2019-04-18 11:08 | PN ---
Teaching Attending Note Name of Resident: Mercedes Webb ATTENDING PHYSICIAN STATEMENT I saw and evaluated the patient. I reviewed the resident's note and discussed the case with the resident. I agree with the resident's findings and plan as documented. SUBJECTIVE: Ms Leyva says she is feeling well and is without complaint. No cp, sob, n/v. OBJECTIVE: Last Vital Signs Temp Pulse Resp BP Pulse Ox 36.5 C 66 18 112/49 L 100 04/18/19 06:00 04/18/19 06:00 04/18/19 06:00 04/18/19 06:00 04/18/19 09:57 Gen: nad Pulm: ctab w/o w/r/r CV: rrr w/o m/r/g Abd: +bs, s/nt/nd Ext no c/c/e CBC, BMP 04/18/19 09:36 04/18/19 09:36 ASSESSMENT AND PLAN: Problem List - Problems (1) Biliary stent obstruction Assessment/Plan: -appreciate Dr Roberson's assistance -planning for ERCP to clean stent today Code(s): T85.590A - [facility] COMPL OF BILE DUCT PROSTHESIS, INITIAL ENCOUNTER Qualifiers: Encounter type: initial encounter Qualified Code(s): T85.590A - Other mechanical complication of bile duct prosthesis, initial encounter (2) HTN (hypertension) Assessment/Plan: -continue amlodipine Code(s): I10 - ESSENTIAL (PRIMARY) HYPERTENSION (3) Obstructive jaundice Assessment/Plan: -clean biliary stent as above Code(s): K83.8 - OTHER SPECIFIED DISEASES OF BILIARY TRACT
[2019-04-18] MEDS: LACTATED RINGERS SOLUTION 1,000 ML/1,000 ML INFUS.BAG IV SCH (13:28)
--- NOTE | 2019-04-18 13:46 | EKG ---
Test Reason : Blood Pressure : / mmHG Vent. Rate : 080 BPM Atrial Rate : 080 BPM P-R Int : 152 ms QRS Dur : 072 ms QT Int : 334 ms P-R-T Axes : 000 -11 030 degrees QTc Int : 385 ms NORMAL SINUS RHYTHM MODERATE VOLTAGE CRITERIA FOR LVH, MAY BE NORMAL VARIANT CANNOT RULE OUT SEPTAL INFARCT , AGE UNDETERMINED Confirmed by BRYNN MEZA MD ([id number]) on 04/18/2019 1:45:59 PM Referred By: Confirmed By:BRYNN MEZA MD
[2019-04-18] MEDS ORDERED: morphine SULFATE 4 MG/ML VIAL IVPUSH PRN (14:24)
[2019-04-18] MEDS ORDERED: morphine SULFATE 4 MG/ML VIAL ONE (14:29)
--- NOTE | 2019-04-18 14:48 | PN ---
Progress Note, Physician History of Present Illness: patient not feeling well has started shivering does not feel well - Current Medication List Current Medications: Active Medications Amlodipine Besylate (Norvasc -) 5 mg PO DAILY [facility] Last Admin: 04/18/19 09:50 Dose: 5 mg Piperacillin Sod/Tazobactam (Sod 3.375 gm/ Dextrose) 50 mls @ 100 mls/hr IVPB Q6H-IV [facility]; Protocol Last Admin: 04/18/19 14:34 Dose: 100 mls/hr Lactated Ringer's (Lactated Ringers Solution) 1,000 ml in 1,000 mls @ 83 mls/ hr IV ASDIR [facility] Last Admin: 04/18/19 13:28 Dose: 83 mls/hr Morphine Sulfate (Morphine Sulfate) 4 mg IVPUSH Q4H PRN PRN Reason: PAIN LEVEL 6-10 Last Admin: 04/18/19 14:31 Dose: 4 mg - Objective Vital Signs: Vital Signs Temperature 97.7 F 04/18/19 06:00 Pulse Rate 66 04/18/19 06:00 Respiratory Rate 18 04/18/19 06:00 Blood Pressure 112/49 L 04/18/19 06:00 O2 Sat by Pulse Oximetry (%) 100 04/18/19 09:57 Constitutional: Yes: Calm, Other Eyes: Yes: Conjunctiva Clear Cardiovascular: Yes: Regular Rate and Rhythm Respiratory: Yes: Regular, CTA Bilaterally Gastrointestinal: Yes: Normal Bowel Sounds, Soft Musculoskeletal: Yes: WNL Extremities: Yes: WNL Neurological: Yes: Alert, Oriented Labs: CBC, BMP 04/18/19 09:36 04/18/19 09:36 INR, PTT INR 1.26 (0.83-1.09) H 04/18/19 09:36 Assessment/Plan Problem List - Problems (1) Biliary stent obstruction Code(s): T85.590A - [facility] COMPL OF BILE DUCT PROSTHESIS, INITIAL ENCOUNTER Qualifiers: Encounter type: initial encounter Qualified Code(s): T85.590A - Other mechanical complication of bile duct prosthesis, initial encounter (2) HTN (hypertension) Code(s): I10 - ESSENTIAL (PRIMARY) HYPERTENSION (3) Obstructive jaundice Code(s): K83.8 - OTHER SPECIFIED DISEASES OF BILIARY TRACT 4 shivering plan continue abx close watch on the patient rest as per the team plan is for ercp
[2019-04-18] MEDS ORDERED: PHENYLEPHRINE HCL 10 MG/1 ML SINGLE DOSE VIAL ONE (15:53)
[2019-04-18] MEDS ORDERED: ONDANSETRON 4 MG/2 ML VIAL IVPUSH PRN (17:23)
[2019-04-18] MEDS ORDERED: ACETAMINOPHEN 1000 MG/100 ML VIAL (NON FORMULARY) IVPB ONE (17:24)
[2019-04-18] MEDS ORDERED: LACTATED RINGERS SOLUTION 1,000 ML IV SCH (17:30)
--- NOTE | 2019-04-18 17:44 | PN ---
Progress Note (short form) - Note Progress Note: GI Procedure NOte: Please see ERCP note. Metallic stent is again obstructed and pus was obtained when it was flushed and swept with the balloon. A 7FR x 10cm double pigtail stent was therefore inserted which reached into the right lobe biliary tract and offered drainage. I discussed the findings with Cher and her daughter. The patient had chills going into the procedure and we checked her temperature which was 98. It was 101.2 after the procedure so Tylenol was given by Dr Gonzalez. I will add Flagyl to her antibiotic regimen. Dr Balderas will be covering this weekend Problem List - Problems (1) Cholangitis Code(s): K83.0 - CHOLANGITIS * DO NOT USE * (2) Biliary stent obstruction Code(s): T85.590A - [facility] COMPL OF BILE DUCT PROSTHESIS, INITIAL ENCOUNTER Qualifiers: Encounter type: initial encounter Qualified Code(s): T85.590A - Other mechanical complication of bile duct prosthesis, initial encounter (3) Colon cancer Code(s): C18.9 - MALIGNANT NEOPLASM OF COLON, UNSPECIFIED (4) Adenoma Code(s): D36.9 - BENIGN NEOPLASM, UNSPECIFIED SITE (5) Polio osteopathy of lower leg Code(s): M89.669 - OSTEOPATHY AFTER POLIOMYELITIS, UNSPECIFIED LOWER LEG; B91 - SEQUELAE OF POLIOMYELITIS (6) Abdominal pain Code(s): R10.9 - UNSPECIFIED ABDOMINAL PAIN Qualifiers: Abdominal location: generalized Qualified Code(s): R10.84 - Generalized abdominal pain (7) HTN (hypertension) Code(s): I10 - ESSENTIAL (PRIMARY) HYPERTENSION (8) Nausea Code(s): R11.0 - NAUSEA (9) Obstructive jaundice Code(s): K83.8 - OTHER SPECIFIED DISEASES OF BILIARY TRACT
[2019-04-18] MEDS ORDERED: LACTATED RINGERS SOLUTION 1,000 ML/1,000 ML INFUS.BAG IV SCH ×2 (17:45→23:45)
[2019-04-18] MEDS: URSODIOL 300 MG CAPSULE PO SCH (21:01)
[2019-04-19] MEDS ORDERED: DEXTROSE 5%-WATER - 50 ML IVPB ONE ×4 (00:11→20:32)
[2019-04-19] MEDS ORDERED: PIPERACILLIN/TAZOBACTAM 3.375 GM VIAL IVPB ONE ×4 (00:11→20:32)
[2019-04-19] MEDS: PIPERACILLIN/TAZOB 3.375 GM 3.375 GM in DEXTROSE 5%-WATER - 50 ML IVPB SCH ×4 (03:40→21:36)
[2019-04-19] MEDS ORDERED: LACTATED RINGERS SOLUTION 1,000 ML/1,000 ML INFUS.BAG IV SCH (05:45)
[2019-04-19 08:34] LABS: BASO % 0.2 % (0-2.0); EOS % 0.1 % (0-4.5); HEMATOCRIT 35.9 % (32.4-45.2); LYMPH % 12.8 % (8-40); MCH 31.5 pg (25.7-33.7); MCHC 33.5 g/dl (32.0-36.0); MEAN CELL VOLUME 94.1 fl (80-96); MEAN PLT VOLUME 9.7 fl (7.5-11.1); MONO % 6.7 % (3.8-10.2); NEUT % 80.2 % (42.8-82.8); PLATELET COUNT 107 K/MM3 (134-434); RBC 3.82 M/mm3 (3.60-5.2); WHITE BLOOD COUNT 11.1 K/mm3 (4.0-10.0)
[2019-04-19 09:02] LABS: BILIRUBIN,DIRECT 4.3 mg/dL (0.0-0.2)
[2019-04-19] MEDS ORDERED: PT OWN MED DRAWER 7, Y5N ONE ×2 (09:05→20:32)
[2019-04-19 09:07] LABS: BILIRUBIN,TOTAL 5.2 mg/dL (0.2-1); CALCIUM 8.3 mg/dL (8.5-10.1); CREATININE 1.3 mg/dL (0.55-1.3); TOT PROT 5.9 g/dl (6.4-8.2)
[2019-04-19] MEDS ORDERED: ACETAMINOPHEN 325 MG TABLET (FP) PO PRN (09:58)
--- NOTE | 2019-04-19 10:03 | PN ---
Progress Note, Physician Chief Complaint: Ms Leyva says she is having some abdominal pain and asking to have her diet advanced. No cp, sob, n/v. - Current Medication List Current Medications: Active Medications Acetaminophen (Tylenol -) 650 mg PO Q4H PRN PRN Reason: FEVER Amlodipine Besylate (Norvasc -) 5 mg PO DAILY [facility] Last Admin: 04/18/19 09:50 Dose: 5 mg Fentanyl (Sublimaze Injection -) 25 mcg IVPUSH [id number] PRN PRN Reason: PAIN-PACU ORDER X 4 DOSES ONLY Piperacillin Sod/Tazobactam (Sod 3.375 gm/ Dextrose) 50 mls @ 100 mls/hr IVPB Q6H-IV [facility]; Protocol Last Admin: 04/19/19 08:44 Dose: 100 mls/hr Metronidazole (Flagyl 500mg Premixed Ivpb -) 500 mg in 100 mls @ 100 mls/hr IVPB Q8H-IV [facility] Last Admin: 04/19/19 01:50 Dose: 100 mls/hr Lactated Ringer's (Lactated Ringers Solution) 1,000 ml in 1,000 mls @ 75 mls/ hr IV ASDIR [facility] Last Admin: 04/19/19 05:56 Dose: 75 mls/hr Morphine Sulfate (Morphine Sulfate) 4 mg IVPUSH Q4H PRN PRN Reason: PAIN LEVEL 6-10 Last Admin: 04/18/19 14:31 Dose: 4 mg Ondansetron HCl (Zofran Injection) 4 mg IVPUSH Q6H PRN PRN Reason: NAUSEA AND/OR VOMITING Ursodiol (Actigal -) 300 mg PO BID [facility] Last Admin: 04/18/19 21:01 Dose: 300 mg - Objective Vital Signs: Vital Signs Temperature 36.4 C 04/19/19 05:51 Pulse Rate 61 04/19/19 05:51 Respiratory Rate 18 04/19/19 05:51 Blood Pressure 95/46 L 04/19/19 05:51 O2 Sat by Pulse Oximetry (%) 98 04/18/19 18:09 Constitutional: Yes: Well Nourished, No Distress, Calm Cardiovascular: Yes: Regular Rate and Rhythm. No: Gallop, Murmur, Rub Respiratory: Yes: Regular, CTA Bilaterally. No: Rales, Rhonchi, Wheezes Gastrointestinal: Yes: Normal Bowel Sounds, Soft. No: Distention, Tenderness Extremities: Yes: WNL Edema: No Labs: CBC, BMP 04/19/19 07:55 04/19/19 07:55 INR, PTT INR 1.26 (0.83-1.09) H 04/18/19 09:36 Problem List - Problems (1) Biliary stent obstruction Code(s): T85.590A - [facility] COMPL OF BILE DUCT PROSTHESIS, INITIAL ENCOUNTER Qualifiers: Encounter type: initial encounter Qualified Code(s): T85.590A - Other mechanical complication of bile duct prosthesis, initial encounter (2) HTN (hypertension) Code(s): I10 - ESSENTIAL (PRIMARY) HYPERTENSION (3) Obstructive jaundice Code(s): K83.8 - OTHER SPECIFIED DISEASES OF BILIARY TRACT Assessment/Plan (1) Biliary stent obstruction Assessment/Plan: -case d/w Dr Balderas -Dr Roberson note reviewed -pus in metal stent, cleaned -continue zosyn -ID following -monitor Code(s): T85.590A - [facility] COMPL OF BILE DUCT PROSTHESIS, INITIAL ENCOUNTER Qualifiers: Encounter type: initial encounter Qualified Code(s): T85.590A - Other mechanical complication of bile duct prosthesis, initial encounter (2) HTN (hypertension) Assessment/Plan: -continue amlodipine Code(s): I10 - ESSENTIAL (PRIMARY) HYPERTENSION (3) Obstructive jaundice Assessment/Plan: -s/p cleaning biliary stent -improving -continue to trend LFTs daily Code(s): K83.8 - OTHER SPECIFIED DISEASES OF BILIARY TRACT
[2019-04-19] MEDS: amLODIPine BESYLATE 5 MG TABLET (FP) PO SCH (10:05)
[2019-04-19] MEDS: URSODIOL 300 MG CAPSULE PO SCH ×2 (11:28→21:37)
--- NOTE | 2019-04-19 12:14 | PN ---
Progress Note (short form) - Note Progress Note: Pt now denies abdominal pain. No fever since ERCP. WBC elevated, amylase, lipase normal (no pancreatitis post-procedure). Bilirubin up, alk phos down. CBC, BMP 6/2 07:55 CBC,CMP WBC 11.1 K/mm3 (4.0-10.0) H 04/19/19 07:55 RBC 3.82 M/mm3 (3.60-5.2) 04/19/19 07:55 Hgb 12.0 GM/dL (10.7-15.3) 04/19/19 07:55 Hct 35.9 % (32.4-45.2) 04/19/19 07:55 MCV 94.1 fl (80-96) 04/19/19 07:55 MCH 31.5 pg (25.7-33.7) 04/19/19 07:55 MCHC 33.5 g/dl (32.0-36.0) 04/19/19 07:55 RDW 14.0 % (11.6-15.6) 04/19/19 07:55 Plt Count 107 K/MM3 (134-434) L 04/19/19 07:55 MPV 9.7 fl (7.5-11.1) 04/19/19 07:55 Absolute Neuts (auto) 8.9 K/mm3 (1.5-8.0) H 04/19/19 07:55 Neutrophils % 80.2 % (42.8-82.8) 04/19/19 07:55 Lymphocytes % 12.8 % (8-40) D 04/19/19 07:55 Monocytes % 6.7 % (3.8-10.2) 04/19/19 07:55 Eosinophils % 0.1 % (0-4.5) 04/19/19 07:55 Basophils % 0.2 % (0-2.0) 04/19/19 07:55 Nucleated RBC % 0 % (0-0) 04/19/19 07:55 Sodium 138 mmol/L (136-145) 04/19/19 07:55 Potassium 4.0 mmol/L (3.5-5.1) 04/19/19 07:55 Chloride 107 mmol/L (98-107) 04/19/19 07:55 Carbon Dioxide 22 mmol/L (21-32) 04/19/19 07:55 Anion Gap 9 MMOL/L (8-16) 04/19/19 07:55 BUN 17.0 mg/dL (7-18) 04/19/19 07:55 Creatinine 1.3 mg/dL (0.55-1.3) 04/19/19 07:55 Est GFR (CKD-EPI)AfAm 42.72 04/19/19 07:55 Est GFR (CKD-EPI)NonAf 36.86 04/19/19 07:55 Random Glucose 84 mg/dL (74-106) 04/19/19 07:55 Lactic Acid 1.9 mmol/L (0.4-2.0) 04/17/19 15:45 Calcium 8.3 mg/dL (8.5-10.1) L 04/19/19 07:55 Total Bilirubin 5.2 mg/dL (0.2-1) H 04/19/19 07:55 Direct Bilirubin 4.3 mg/dL (0.0-0.2) H 04/19/19 07:55 AST 118 U/L (15-37) H 04/19/19 07:55 ALT 203 U/L (13-61) H 04/19/19 07:55 Alkaline Phosphatase 283 U/L (45-117) H 04/19/19 07:55 Troponin I < 0.02 ng/ml (0.00-0.05) 04/17/19 15:45 C-Reactive Protein 13.4 MG/DL (0.00-0.3) H 04/19/19 07:55 Total Protein 5.9 g/dl (6.4-8.2) L 04/19/19 07:55 Albumin 3.0 g/dl (3.4-5.0) L 04/19/19 07:55 Total Amylase 54 U/L (25-115) 04/19/19 07:55 Lipase 67 U/L (73-393) L 04/19/19 07:55 Will advance diet. May d/c IV fluids, continue IV antibiotics. Monitor LFTs. If bilirubin does not come down may need another ERCP.
--- NOTE | 2019-04-19 19:29 | PN ---
Progress Note, Physician History of Present Illness: Pt seen and examined. Events noted. s/p ERCP/drainage/stent placement. Pt is afebrile today. Has some epigastric discomfort but no other complaints. - Current Medication List Current Medications: Active Medications Acetaminophen (Tylenol -) 650 mg PO Q4H PRN PRN Reason: FEVER Amlodipine Besylate (Norvasc -) 5 mg PO DAILY [facility] Last Admin: 04/19/19 10:05 Dose: 5 mg Fentanyl (Sublimaze Injection -) 25 mcg IVPUSH [id number] PRN PRN Reason: PAIN-PACU ORDER X 4 DOSES ONLY Piperacillin Sod/Tazobactam (Sod 3.375 gm/ Dextrose) 50 mls @ 100 mls/hr IVPB Q6H-IV [facility]; Protocol Last Admin: 04/19/19 14:56 Dose: 100 mls/hr Metronidazole (Flagyl 500mg Premixed Ivpb -) 500 mg in 100 mls @ 100 mls/hr IVPB Q8H-IV [facility] Last Admin: 04/19/19 17:21 Dose: 100 mls/hr Morphine Sulfate (Morphine Sulfate) 4 mg IVPUSH Q4H PRN PRN Reason: PAIN LEVEL 6-10 Last Admin: 04/18/19 14:31 Dose: 4 mg Ondansetron HCl (Zofran Injection) 4 mg IVPUSH Q6H PRN PRN Reason: NAUSEA AND/OR VOMITING Ursodiol (Actigal -) 300 mg PO BID [facility] Last Admin: 04/19/19 11:28 Dose: 300 mg - Objective Vital Signs: Vital Signs Temperature 98.3 F 04/19/19 18:35 Pulse Rate 64 04/19/19 18:35 Respiratory Rate 18 04/19/19 18:35 Blood Pressure 124/50 L 04/19/19 18:35 O2 Sat by Pulse Oximetry (%) 96 04/19/19 10:00 Constitutional: Yes: No Distress, Calm Cardiovascular: Yes: Regular Rate and Rhythm Respiratory: Yes: Regular Gastrointestinal: Yes: Normal Bowel Sounds, Soft Genitourinary: Yes: WNL Integumentary: Yes: WNL Neurological: Yes: Alert, Oriented Labs: CBC, BMP 04/19/19 07:55 04/19/19 07:55 INR, PTT INR 1.26 (0.83-1.09) H 04/18/19 09:36 Microbiology 04/17/19 15:40 Blood - Peripheral Venous Blood Culture - Preliminary NO GROWTH OBTAINED AFTER 48 HOURS, INCUBATION TO CONTINUE FOR 3 DAYS. 04/17/19 15:45 Blood - Peripheral Venous Blood Culture - Preliminary NO GROWTH OBTAINED AFTER 48 HOURS, INCUBATION TO CONTINUE FOR 3 DAYS. 04/17/19 17:25 Urine - Urine Clean Catch Urine Culture - Final Problem List - Problems (1) Biliary stent obstruction Code(s): T85.590A - [facility] COMPL OF BILE DUCT PROSTHESIS, INITIAL ENCOUNTER Qualifiers: Encounter type: initial encounter Qualified Code(s): T85.590A - Other mechanical complication of bile duct prosthesis, initial encounter (2) Colon cancer Code(s): C18.9 - MALIGNANT NEOPLASM OF COLON, UNSPECIFIED (3) Cholangitis Code(s): K83.0 - CHOLANGITIS * DO NOT USE * (4) Fever Code(s): R50.9 - FEVER, UNSPECIFIED (5) HTN (hypertension) Code(s): I10 - ESSENTIAL (PRIMARY) HYPERTENSION (6) Obstructive jaundice Code(s): K83.8 - OTHER SPECIFIED DISEASES OF BILIARY TRACT Assessment/Plan -- s/p ERCP with stent placement -- Pt with fever yesterday, afebrile today -- continue current antibiotics for now -- monitor wbc/cmp, temps
[2019-04-20] MEDS ORDERED: DEXTROSE 5%-WATER - 50 ML IVPB ONE ×4 (00:48→20:50)
[2019-04-20] MEDS ORDERED: PIPERACILLIN/TAZOBACTAM 3.375 GM VIAL IVPB ONE ×4 (00:48→20:50)
[2019-04-20] MEDS: PIPERACILLIN/TAZOB 3.375 GM 3.375 GM in DEXTROSE 5%-WATER - 50 ML IVPB SCH ×4 (02:36→21:51)
[2019-04-20 09:21] LABS: BASO % 0.4 % (0-2.0); EOS % 0.3 % (0-4.5); HEMATOCRIT 36.5 % (32.4-45.2); HEMOGLOBIN 12.4 GM/dL (10.7-15.3); LYMPH % 20.8 % (8-40); MCH 31.9 pg (25.7-33.7); MEAN PLT VOLUME 10.2 fl (7.5-11.1); NEUT % 70.5 % (42.8-82.8); PLATELET COUNT 105 K/MM3 (134-434); RBC 3.89 M/mm3 (3.60-5.2); WHITE BLOOD COUNT 5.8 K/mm3 (4.0-10.0)
[2019-04-20 09:44] LABS: BLOOD UREA NITROGEN 16.5 mg/dL (7-18); CALCIUM 8.8 mg/dL (8.5-10.1); CREATININE 1.2 mg/dL (0.55-1.3); MAGNESIUM 1.9 mg/dL (1.8-2.4); PHOSPHOROUS 1.8 mg/dL (2.5-4.9)
[2019-04-20 09:55] LABS: ALBUMIN 3.2 g/dl (3.4-5.0); BILIRUBIN,DIRECT 3.7 mg/dL (0.0-0.2); BILIRUBIN,TOTAL 4.6 mg/dL (0.2-1); TOT PROT 6.4 g/dl (6.4-8.2)
[2019-04-20] MEDS ORDERED: PT OWN MED DRAWER 7, Y5N ONE ×2 (10:45→20:50)
[2019-04-20] MEDS: URSODIOL 300 MG CAPSULE PO SCH ×2 (11:01→21:51)
[2019-04-20] MEDS: amLODIPine BESYLATE 5 MG TABLET (FP) PO SCH (11:01)
--- NOTE | 2019-04-20 11:02 | PN ---
Progress Note, Physician Chief Complaint: Ms Leyva still has abdominal pain but says it is improved. Tolerating diet. No cp, sob, n/v. - Current Medication List Current Medications: Active Medications Acetaminophen (Tylenol -) 650 mg PO Q4H PRN PRN Reason: FEVER Amlodipine Besylate (Norvasc -) 5 mg PO DAILY [facility] Last Admin: 04/19/19 10:05 Dose: 5 mg Fentanyl (Sublimaze Injection -) 25 mcg IVPUSH [id number] PRN PRN Reason: PAIN-PACU ORDER X 4 DOSES ONLY Piperacillin Sod/Tazobactam (Sod 3.375 gm/ Dextrose) 50 mls @ 100 mls/hr IVPB Q6H-IV [facility]; Protocol Last Admin: 04/20/19 02:36 Dose: 100 mls/hr Metronidazole (Flagyl 500mg Premixed Ivpb -) 500 mg in 100 mls @ 100 mls/hr IVPB Q8H-IV [facility] Last Admin: 04/20/19 01:40 Dose: 100 mls/hr Morphine Sulfate (Morphine Sulfate) 4 mg IVPUSH Q4H PRN PRN Reason: PAIN LEVEL 6-10 Last Admin: 04/18/19 14:31 Dose: 4 mg Ondansetron HCl (Zofran Injection) 4 mg IVPUSH Q6H PRN PRN Reason: NAUSEA AND/OR VOMITING Ursodiol (Actigal -) 300 mg PO BID [facility] Last Admin: 04/19/19 21:37 Dose: 300 mg - Objective Vital Signs: Vital Signs Temperature 36.7 C 04/19/19 22:00 Pulse Rate 64 04/20/19 06:27 Respiratory Rate 18 04/20/19 06:27 Blood Pressure 133/59 L 04/20/19 06:27 O2 Sat by Pulse Oximetry (%) 96 04/19/19 21:00 Constitutional: Yes: Well Nourished, No Distress, Calm Cardiovascular: Yes: Regular Rate and Rhythm. No: Gallop, Murmur, Rub Respiratory: Yes: Regular, CTA Bilaterally. No: Rales, Rhonchi, Wheezes Gastrointestinal: Yes: Soft, Hypoactive Bowel Sounds, Tenderness (slight). No: Distention Extremities: Yes: WNL Edema: No Labs: CBC, BMP 04/20/19 08:16 04/20/19 08:16 INR, PTT INR 1.26 (0.83-1.09) H 04/18/19 09:36 Problem List - Problems (1) Biliary stent obstruction Code(s): T85.590A - [facility] COMPL OF BILE DUCT PROSTHESIS, INITIAL ENCOUNTER Qualifiers: Encounter type: initial encounter Qualified Code(s): T85.590A - Other mechanical complication of bile duct prosthesis, initial encounter (2) HTN (hypertension) Code(s): I10 - ESSENTIAL (PRIMARY) HYPERTENSION (3) Obstructive jaundice Code(s): K83.8 - OTHER SPECIFIED DISEASES OF BILIARY TRACT Assessment/Plan (1) Biliary stent obstruction Assessment/Plan: -case d/w Dr Balderas -continue zosyn -patient improving -LFTs improved today -recheck in am -possible discharge tomorrow, will d/w Dr Roberson tomorrow Code(s): T85.590A - [facility] COMPL OF BILE DUCT PROSTHESIS, INITIAL ENCOUNTER Qualifiers: Encounter type: initial encounter Qualified Code(s): T85.590A - Other mechanical complication of bile duct prosthesis, initial encounter (2) HTN (hypertension) Assessment/Plan: -continue amlodipine Code(s): I10 - ESSENTIAL (PRIMARY) HYPERTENSION (3) Obstructive jaundice Assessment/Plan: -s/p cleaning biliary stent -improving -d/w Dr Roberson in am to make sure does not need further cleaning since pus was noted on first ERCP Code(s): K83.8 - OTHER SPECIFIED DISEASES OF BILIARY TRACT
--- NOTE | 2019-04-20 11:35 | PN ---
Progress Note (short form) - Note Progress Note: WBC down and LFTs elevated but improved. No fever, tolerating diet, no complaints. Vital Signs Temperature 97.9 F 04/20/19 10:00 Pulse Rate 61 04/20/19 10:00 Respiratory Rate 19 04/20/19 10:00 Blood Pressure 139/53 L 04/20/19 10:00 O2 Sat by Pulse Oximetry (%) 96 04/19/19 21:00 CBCD WBC 5.8 K/mm3 (4.0-10.0) 04/20/19 08:16 RBC 3.89 M/mm3 (3.60-5.2) 04/20/19 08:16 Hgb 12.4 GM/dL (10.7-15.3) 04/20/19 08:16 Hct 36.5 % (32.4-45.2) 04/20/19 08:16 MCV 94.0 fl (80-96) 04/20/19 08:16 MCHC 34.0 g/dl (32.0-36.0) 04/20/19 08:16 RDW 14.0 % (11.6-15.6) 04/20/19 08:16 Plt Count 105 K/MM3 (134-434) L 04/20/19 08:16 MPV 10.2 fl (7.5-11.1) 04/20/19 08:16 CMP Sodium 141 mmol/L (136-145) 04/20/19 08:16 Potassium 4.0 mmol/L (3.5-5.1) 04/20/19 08:16 Chloride 112 mmol/L (98-107) H 04/20/19 08:16 Carbon Dioxide 21 mmol/L (21-32) 04/20/19 08:16 Anion Gap 8 MMOL/L (8-16) 04/20/19 08:16 BUN 16.5 mg/dL (7-18) 04/20/19 08:16 Creatinine 1.2 mg/dL (0.55-1.3) 04/20/19 08:16 Calcium 8.8 mg/dL (8.5-10.1) 04/20/19 08:16 Total Bilirubin 4.6 mg/dL (0.2-1) H 04/20/19 08:16 AST 78 U/L (15-37) H 04/20/19 08:16 ALT 161 U/L (13-61) H 04/20/19 08:16 Alkaline Phosphatase 270 U/L (45-117) H 04/20/19 08:16 Total Protein 6.4 g/dl (6.4-8.2) 04/20/19 08:16 Albumin 3.2 g/dl (3.4-5.0) L 04/20/19 08:16 Blood cultures negative: Microbiology 04/17/19 15:40 Blood Culture - Preliminary Blood - Peripheral Venous NO GROWTH OBTAINED AFTER 48 HOURS, INCUBATION TO CONTINUE FOR 3 DAYS. 04/17/19 15:45 Blood Culture - Preliminary Blood - Peripheral Venous NO GROWTH OBTAINED AFTER 48 HOURS, INCUBATION TO CONTINUE FOR 3 DAYS. 04/17/19 17:25 Urine Culture - Final Urine - Urine Clean Catch Impression: Cholangitis, improved. If lfts continue to improve tomorrow would suggest change to oral antibiotics and possible discharge Sunday.
[2019-04-20] MEDS ORDERED: MAG HYDROX/AL HYDROX/SIMETH 30 ML UNIT-DOSE CUP PO PRN (12:08)
[2019-04-20] MEDS ORDERED: POTASSIUM PHOSPHATE 16 MM in SODIUM CHLORIDE 250 ML IVPB ONE (13:30)
--- NOTE | 2019-04-20 15:08 | PN ---
Progress Note, Physician History of Present Illness: Pt states she feels better, has less abd pain, and her appetite is good. No new complaints. - Current Medication List Current Medications: Active Medications Acetaminophen (Tylenol -) 650 mg PO Q4H PRN PRN Reason: FEVER Al Hydroxide/Mg Hydroxide (Mylanta Oral Suspension -) 30 ml PO Q6H PRN PRN Reason: DYSPEPSIA Amlodipine Besylate (Norvasc -) 5 mg PO DAILY [facility] Last Admin: 04/20/19 11:01 Dose: 5 mg Fentanyl (Sublimaze Injection -) 25 mcg IVPUSH [id number] PRN PRN Reason: PAIN-PACU ORDER X 4 DOSES ONLY Piperacillin Sod/Tazobactam (Sod 3.375 gm/ Dextrose) 50 mls @ 100 mls/hr IVPB Q6H-IV [facility]; Protocol Last Admin: 04/20/19 11:01 Dose: 100 mls/hr Metronidazole (Flagyl 500mg Premixed Ivpb -) 500 mg in 100 mls @ 100 mls/hr IVPB Q8H-IV [facility] Last Admin: 04/20/19 11:01 Dose: 100 mls/hr Potassium Phosphate 16 mm/ (Sodium Chloride) 255.3333 mls @ 62.5 mls/hr IVPB ONCE ONE Stop: 04/20/19 17:35 Morphine Sulfate (Morphine Sulfate) 4 mg IVPUSH Q4H PRN PRN Reason: PAIN LEVEL 6-10 Last Admin: 04/18/19 14:31 Dose: 4 mg Ondansetron HCl (Zofran Injection) 4 mg IVPUSH Q6H PRN PRN Reason: NAUSEA AND/OR VOMITING Ursodiol (Actigal -) 300 mg PO BID [facility] Last Admin: 04/20/19 11:01 Dose: 300 mg - Objective Vital Signs: Vital Signs Temperature 98.1 F 04/20/19 13:49 Pulse Rate 74 04/20/19 13:49 Respiratory Rate 20 04/20/19 13:49 Blood Pressure 135/58 L 04/20/19 13:49 O2 Sat by Pulse Oximetry (%) 96 04/19/19 21:00 Constitutional: Yes: No Distress, Calm Cardiovascular: Yes: Regular Rate and Rhythm Respiratory: Yes: Regular Gastrointestinal: Yes: Normal Bowel Sounds, Soft, Tenderness (mild epigastric with deep palpation) Genitourinary: Yes: WNL Extremities: Yes: WNL Integumentary: Yes: WNL Neurological: Yes: Alert, Oriented Labs: CBC, BMP 04/20/19 08:16 04/20/19 08:16 INR, PTT INR 1.26 (0.83-1.09) H 04/18/19 09:36 Laboratory Results - last 24 hr 04/20/19 04/20/19 04/20/19 08:16 08:16 08:16 WBC 5.8 RBC 3.89 Hgb 12.4 Hct 36.5 MCV 94.0 MCH 31.9 MCHC 34.0 RDW 14.0 Plt Count 105 L MPV 10.2 Absolute Neuts (auto) 4.1 Neutrophils % 70.5 Lymphocytes % 20.8 D Monocytes % 8.0 Eosinophils % 0.3 D Basophils % 0.4 Nucleated RBC % 0 Sodium 141 Potassium 4.0 Chloride 112 H Carbon Dioxide 21 Anion Gap 8 BUN 16.5 Creatinine 1.2 Est GFR (CKD-EPI)AfAm 47.06 Est GFR (CKD-EPI)NonAf 40.60 Random Glucose 91 Calcium 8.8 Phosphorus 1.8 L Magnesium 1.9 Total Bilirubin 4.6 H Direct Bilirubin 3.7 H AST 78 H ALT 161 H Alkaline Phosphatase 270 H Total Protein 6.4 Albumin 3.2 L Problem List - Problems (1) Biliary stent obstruction Code(s): T85.590A - [facility] COMPL OF BILE DUCT PROSTHESIS, INITIAL ENCOUNTER Qualifiers: Encounter type: initial encounter Qualified Code(s): T85.590A - Other mechanical complication of bile duct prosthesis, initial encounter (2) Colon cancer Code(s): C18.9 - MALIGNANT NEOPLASM OF COLON, UNSPECIFIED (3) Cholangitis Code(s): K83.0 - CHOLANGITIS * DO NOT USE * (4) Fever Code(s): R50.9 - FEVER, UNSPECIFIED (5) HTN (hypertension) Code(s): I10 - ESSENTIAL (PRIMARY) HYPERTENSION (6) Obstructive jaundice Code(s): K83.8 - OTHER SPECIFIED DISEASES OF BILIARY TRACT Assessment/Plan -- s/p ERCP with stent placement/drainage/cleaned metallic stent -- Pt afebrile, LFTs trending down -- may switch to oral antibiotics tomorrow -- continue monitor
[2019-04-21] MEDS ORDERED: DEXTROSE 5%-WATER - 50 ML IVPB ONE ×2 (01:00→09:46)
[2019-04-21] MEDS ORDERED: PIPERACILLIN/TAZOBACTAM 3.375 GM VIAL IVPB ONE ×2 (01:00→09:45)
[2019-04-21] MEDS: PIPERACILLIN/TAZOB 3.375 GM 3.375 GM in DEXTROSE 5%-WATER - 50 ML IVPB SCH ×2 (02:25→09:56)
[2019-04-21 07:03] LABS: BASO % 0.7 % (0-2.0); EOS % 0.9 % (0-4.5); HEMATOCRIT 32.9 % (32.4-45.2); HEMOGLOBIN 10.9 GM/dL (10.7-15.3); LYMPH % 24.1 % (8-40); MCH 31.2 pg (25.7-33.7); MEAN CELL VOLUME 94.5 fl (80-96); MEAN PLT VOLUME 9.6 fl (7.5-11.1); MONO % 8.5 % (3.8-10.2); NEUT % 65.8 % (42.8-82.8); PLATELET COUNT 101 K/MM3 (134-434); RBC 3.48 M/mm3 (3.60-5.2); RDW 14.1 % (11.6-15.6); WHITE BLOOD COUNT 4.6 K/mm3 (4.0-10.0)
[2019-04-21 07:47] LABS: POTASSIUM 4.7 mmol/L (3.5-5.1)
[2019-04-21 07:57] LABS: ALBUMIN 2.6 g/dl (3.4-5.0); BILIRUBIN,DIRECT 2.9 mg/dL (0.0-0.2); BILIRUBIN,TOTAL 3.3 mg/dL (0.2-1); BLOOD UREA NITROGEN 13.9 mg/dL (7-18); CALCIUM 8.2 mg/dL (8.5-10.1); CREATININE 1.1 mg/dL (0.55-1.3); MAGNESIUM 1.9 mg/dL (1.8-2.4); PHOSPHOROUS 2.1 mg/dL (2.5-4.9); TOT PROT 5.5 g/dl (6.4-8.2)
--- NOTE | 2019-04-21 08:34 | PN ---
Teaching Attending Note Name of Resident: Mercedes Webb ATTENDING PHYSICIAN STATEMENT I saw and evaluated the patient. I reviewed the resident's note and discussed the case with the resident. I agree with the resident's findings and plan as documented with exceptions below. SUBJECTIVE: Patient seen and examined. denies any nausea, vomiting, abdominal pain. Tolerating diet well. OBJECTIVE: Vital Signs Period Temp Pulse Resp BP Sys/Keen Pulse Ox Last 24 Hr 97.4 F-98.4 F 57-74 19-20 125-149/50-74 96-96 Intake & Output 04/18/19 04/19/19 04/20/19 04/21/19 23:59 23:59 23:59 23:59 Intake Total 2248 2625 2210 500 Output Total 0 Balance 2248 2625 2210 500 Weight 113 lb General: sitting in chair in no acute distress CVS: S1S2 regular Chest: CTAB, no rales or wheezing Abdomen: soft, NT, ND, pos bowel sounds, no RUQ tenderness noted Extremities: no edema Home Medications Medication Instructions Recorded Amlodipine Besylate [Norvasc -] 5 mg PO DAILY #0 tablet 01/29/17 Active Medications Acetaminophen (Tylenol -) 650 mg PO Q4H PRN PRN Reason: FEVER Al Hydroxide/Mg Hydroxide (Mylanta Oral Suspension -) 30 ml PO Q6H PRN PRN Reason: DYSPEPSIA Amlodipine Besylate (Norvasc -) 5 mg PO DAILY [facility] Last Admin: 04/20/19 11:01 Dose: 5 mg Fentanyl (Sublimaze Injection -) 25 mcg IVPUSH [id number] PRN PRN Reason: PAIN-PACU ORDER X 4 DOSES ONLY Piperacillin Sod/Tazobactam (Sod 3.375 gm/ Dextrose) 50 mls @ 100 mls/hr IVPB Q6H-IV [facility]; Protocol Last Admin: 04/21/19 02:25 Dose: 100 mls/hr Metronidazole (Flagyl 500mg Premixed Ivpb -) 500 mg in 100 mls @ 100 mls/hr IVPB Q8H-IV [facility] Last Admin: 04/21/19 01:46 Dose: 100 mls/hr Morphine Sulfate (Morphine Sulfate) 4 mg IVPUSH Q4H PRN PRN Reason: PAIN LEVEL 6-10 Last Admin: 04/18/19 14:31 Dose: 4 mg Ondansetron HCl (Zofran Injection) 4 mg IVPUSH Q6H PRN PRN Reason: NAUSEA AND/OR VOMITING Ursodiol (Actigal -) 300 mg PO BID [facility] Last Admin: 04/20/19 21:51 Dose: 300 mg Laboratory Results - last 24 hr 04/20/19 04/20/19 04/20/19 08:16 08:16 08:16 WBC 5.8 RBC 3.89 Hgb 12.4 Hct 36.5 MCV 94.0 MCH 31.9 MCHC 34.0 RDW 14.0 Plt Count 105 L MPV 10.2 Absolute Neuts (auto) 4.1 Neutrophils % 70.5 Lymphocytes % 20.8 D Monocytes % 8.0 Eosinophils % 0.3 D Basophils % 0.4 Nucleated RBC % 0 Sodium 141 Potassium 4.0 Chloride 112 H Carbon Dioxide 21 Anion Gap 8 BUN 16.5 Creatinine 1.2 Est GFR (CKD-EPI)AfAm 47.06 Est GFR (CKD-EPI)NonAf 40.60 Random Glucose 91 Calcium 8.8 Phosphorus 1.8 L Magnesium 1.9 Total Bilirubin 4.6 H Direct Bilirubin 3.7 H AST 78 H ALT 161 H Alkaline Phosphatase 270 H Total Protein 6.4 Albumin 3.2 L 04/21/19 04/21/19 06:27 06:27 WBC 4.6 RBC 3.48 L Hgb 10.9 Hct 32.9 MCV 94.5 MCH 31.2 MCHC 33.0 RDW 14.1 Plt Count 101 L MPV 9.6 Absolute Neuts (auto) 3.0 Neutrophils % 65.8 Lymphocytes % 24.1 Monocytes % 8.5 Eosinophils % 0.9 D Basophils % 0.7 Nucleated RBC % 0 Sodium 144 Potassium 4.7 Chloride 117 H Carbon Dioxide 20 L Anion Gap 6 L BUN 13.9 Creatinine 1.1 Est GFR (CKD-EPI)AfAm 52.28 Est GFR (CKD-EPI)NonAf 45.11 Random Glucose 93 Calcium 8.2 L Phosphorus 2.1 L Magnesium 1.9 Total Bilirubin 3.3 H Direct Bilirubin 2.9 H AST 51 H ALT 105 H Alkaline Phosphatase 215 H Total Protein 5.5 L Albumin 2.6 L Microbiology 04/17/19 15:45 Blood - Peripheral Venous Blood Culture - Preliminary NO GROWTH OBTAINED AFTER 72 HOURS, INCUBATION TO CONTINUE FOR 2 DAYS. 04/17/19 15:40 Blood - Peripheral Venous Blood Culture - Preliminary NO GROWTH OBTAINED AFTER 72 HOURS, INCUBATION TO CONTINUE FOR 2 DAYS. 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 LFTs improved, afebrile. Gi input noted, abx changed to amoxicilin/flagyl, monitor x 24 hours. ID input noted. Continue amlodipine/Ursodiol Dispo d/c in 24 hours of PO abx if no concerns. Plan discussed with Dr. Roberson, patient and nursing, all questions answered
--- NOTE | 2019-04-21 09:19 | PN ---
Physical Exam: SUBJECTIVE: Patient seen and examined standing, NAD, walked around hallway, afebrile hemodynamically stable. no acute events. denies abdominal tenderness and nausea. denies vomiting, d/c, f/c. tolerating regular diet + bm OBJECTIVE: Vital Signs Period Temp Pulse Resp BP Sys/Keen Pulse Ox Last 24 Hr 97.4 F-98.4 F 57-74 19-20 125-149/50-74 96 GENERAL: The patient is awake, alert, and fully oriented, in no acute distress. HEAD: Normal with no signs of trauma. EYES: PERRL, extraocular movements intact, no scleral icterus, conjunctiva clear. No ptosis. ENT: moist mucous membranes. NECK: supple. LUNGS: Breath sounds equal, clear to auscultation bilaterally HEART: Regular rate and rhythm, S1, S2 ABDOMEN: Soft, nontender, nondistended, normoactive bowel sounds, no guarding, no rebound EXTREMITIES: 2+ pulses, warm, well-perfused, no edema. 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 Normal speech, gait not observed. PSYCH: Normal mood, normal affect. SKIN: Warm, dry Laboratory Results - last 24 hr 04/20/19 04/20/19 04/20/19 08:16 08:16 08:16 WBC 5.8 RBC 3.89 Hgb 12.4 Hct 36.5 MCV 94.0 MCH 31.9 MCHC 34.0 RDW 14.0 Plt Count 105 L MPV 10.2 Absolute Neuts (auto) 4.1 Neutrophils % 70.5 Lymphocytes % 20.8 D Monocytes % 8.0 Eosinophils % 0.3 D Basophils % 0.4 Nucleated RBC % 0 Sodium 141 Potassium 4.0 Chloride 112 H Carbon Dioxide 21 Anion Gap 8 BUN 16.5 Creatinine 1.2 Est GFR (CKD-EPI)AfAm 47.06 Est GFR (CKD-EPI)NonAf 40.60 Random Glucose 91 Calcium 8.8 Phosphorus 1.8 L Magnesium 1.9 Total Bilirubin 4.6 H Direct Bilirubin 3.7 H AST 78 H ALT 161 H Alkaline Phosphatase 270 H Total Protein 6.4 Albumin 3.2 L 04/21/19 04/21/19 06:27 06:27 WBC 4.6 RBC 3.48 L Hgb 10.9 Hct 32.9 MCV 94.5 MCH 31.2 MCHC 33.0 RDW 14.1 Plt Count 101 L MPV 9.6 Absolute Neuts (auto) 3.0 Neutrophils % 65.8 Lymphocytes % 24.1 Monocytes % 8.5 Eosinophils % 0.9 D Basophils % 0.7 Nucleated RBC % 0 Sodium 144 Potassium 4.7 Chloride 117 H Carbon Dioxide 20 L Anion Gap 6 L BUN 13.9 Creatinine 1.1 Est GFR (CKD-EPI)AfAm 52.28 Est GFR (CKD-EPI)NonAf 45.11 Random Glucose 93 Calcium 8.2 L Phosphorus 2.1 L Magnesium 1.9 Total Bilirubin 3.3 H Direct Bilirubin 2.9 H AST 51 H ALT 105 H Alkaline Phosphatase 215 H Total Protein 5.5 L Albumin 2.6 L Active Medications Generic Name Dose Route Start Last Admin Trade Name Freq PRN Reason Stop Dose Admin Acetaminophen 650 mg 04/19/19 09:58 Tylenol - PO Q4H PRN FEVER Al Hydroxide/Mg Hydroxide 30 ml 04/20/19 12:08 Mylanta Oral Suspension - PO Q6H PRN DYSPEPSIA Amlodipine Besylate 5 mg 04/18/19 10:00 04/20/19 11:01 Norvasc - PO 5 mg DAILY [facility] Administration Fentanyl 25 mcg 04/18/19 17:23 Sublimaze Injection - IVPUSH [id number] PRN PAIN-PACU ORDER X 4 DOSES ONLY Piperacillin Sod/Tazobactam 50 mls @ 100 mls/hr 04/17/19 17:15 04/21/19 02:25 Sod 3.375 gm/ Dextrose IVPB 100 mls/hr Q6H-IV [facility] Administration Protocol Metronidazole 500 mg in 100 mls @ 100 mls/hr 04/18/19 18:00 04/21/19 01:46 Flagyl 500mg Premixed Ivpb - IVPB 100 mls/hr Q8H-IV [facility] Administration Morphine Sulfate 4 mg 04/18/19 14:24 04/18/19 14:31 Morphine Sulfate IVPUSH 4 mg Q4H PRN Administration PAIN LEVEL 6-10 Ondansetron HCl 4 mg 04/18/19 17:23 Zofran Injection IVPUSH Q6H PRN NAUSEA AND/OR VOMITING Ursodiol 300 mg 04/18/19 22:00 04/20/19 21:51 Actigal - PO 300 mg BID [facility] Administration ASSESSMENT/PLAN: 88 yrs old F lives at home H/O HTN, Ca Colon s/p resection, and cholecystectomy 2013 billairy temporary stent was put for Billiary leak but during Colon resection changes to metallic stent in 2014 (surgery was complications and a metal biliary stent was placed) chronically obstructed billiary stent required frequent required cleaning by ERCP (last 12/2018) , recurrent obstructive Jaundice and ascending cholangitis, today present after an episode of nausea, vomiting and chills Obstructive jaundice due to biliary stant obstruction s/p stent cleaning ERCP ascending cholangitis resolved htn colon ca s/p resection -s/p ercp stent cleaning feels much better -bilirubin, lfts trending down -switched to PO amoxicillin and flagyl today -gi eval appreciated -ID consult appreciated -continue home norvasc -hi home tomorrow Problem List - Problems (1) Biliary stent obstruction Code(s): T85.590A - 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 - OSTEOPATHY AFTER POLIOMYELITIS, UNSPECIFIED LOWER LEG; B91 - SEQUELAE OF POLIOMYELITIS (4) Abdominal pain Code(s): R10.9 - UNSPECIFIED ABDOMINAL PAIN Qualifiers: Abdominal location: generalized Qualified Code(s): R10.84 - Generalized abdominal pain (5) Acute cholecystitis Code(s): K81.0 - ACUTE CHOLECYSTITIS (6) Cholangitis Code(s): K83.0 - CHOLANGITIS * DO NOT USE * (7) HTN (hypertension) Code(s): I10 - ESSENTIAL (PRIMARY) HYPERTENSION (8) Nausea Code(s): R11.0 - NAUSEA Visit type - Emergency Visit Emergency Visit: Yes ED Registration Date: 04/17/19 Care time: The patient presented to the Emergency Department on the above date and was hospitalized for further evaluation of their emergent condition. - New Patient This patient is new to me today: No - Critical Care Critical Care patient: No - Discharge Referral Referred to [facility] Med P.C.: No
[2019-04-21] MEDS ORDERED: PT OWN MED DRAWER 7, Y5N ONE ×2 (09:48→20:36)
[2019-04-21] MEDS: URSODIOL 300 MG CAPSULE PO SCH ×2 (09:57→21:26)
[2019-04-21] MEDS: amLODIPine BESYLATE 5 MG TABLET (FP) PO SCH (09:57)
[2019-04-21] MEDS: NAPH,MB-DB/K PH,MBDB POWDER PACKET PO SCH ×2 (09:58→21:27)
--- NOTE | 2019-04-21 12:15 | PN.GI ---
GI Progress Note Subjective: GI NOte: NO abdominal pain. No chills. Blood cultures reveal no growth - Objective Vital Signs: Vital Signs Temperature 97.6 F 04/21/19 09:00 Pulse Rate 65 04/21/19 09:00 Respiratory Rate 20 04/21/19 09:00 Blood Pressure 148/64 04/21/19 09:00 O2 Sat by Pulse Oximetry (%) 96 04/20/19 21:00 Laboratory Tests 04/18/19 04/18/19 04/19/19 09:36 09:36 07:55 WBC 6.6 11.1 H Hgb 12.2 Total Bilirubin 3.8 H Direct Bilirubin AST 214 H ALT 277 H Alkaline Phosphatase 330 H 04/19/19 04/19/19 04/20/19 07:55 07:55 08:16 WBC 5.8 Hgb Total Bilirubin 5.2 H Direct Bilirubin 4.3 H AST 118 H ALT 203 H Alkaline Phosphatase 283 H 04/20/19 04/21/19 04/21/19 08:16 06:27 06:27 WBC 4.6 Hgb 10.9 Total Bilirubin 4.6 H 3.3 H Direct Bilirubin 2.9 H AST 78 H 51 H ALT 161 H 105 H Alkaline Phosphatase 270 H 215 H Constitutional: Calm Eyes: Yes: Sclera Icterus Cardiovascular: Yes: Regular Rate and Rhythm Respiratory: Yes: CTA Bilaterally ...Auscultate: Yes: Normoactive Bowel Sounds ...Palpate: Yes: Soft, Other (nontender) Labs: CBC, BMP 04/21/19 06:27 04/21/19 06:27 INR, PTT INR 1.26 (0.83-1.09) H 04/18/19 09:36 Assessment/Plan Impression: - Cholangitis and jaundice due to recurrent obstruction of indwelling metallic nonremovable CBD stent relieved by plastic stent - 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 -- Switch to oral antibiotics. If remains afebrile and stable I have no objections to discharge in AM. Discussed with Dr Morales, Problem List - Problems (1) Cholangitis Code(s): K83.0 - CHOLANGITIS * DO NOT USE * (2) Biliary stent obstruction Code(s): T85.590A - [facility] COMPL OF BILE DUCT PROSTHESIS, INITIAL ENCOUNTER Qualifiers: Encounter type: initial encounter Qualified Code(s): T85.590A - Other mechanical complication of bile duct prosthesis, initial encounter (3) Colon cancer Code(s): C18.9 - MALIGNANT NEOPLASM OF COLON, UNSPECIFIED (4) Adenoma Code(s): D36.9 - BENIGN NEOPLASM, UNSPECIFIED SITE (5) Polio osteopathy of lower leg Code(s): M89.669 - OSTEOPATHY AFTER POLIOMYELITIS, UNSPECIFIED LOWER LEG; B91 - SEQUELAE OF POLIOMYELITIS (6) Abdominal pain Code(s): R10.9 - UNSPECIFIED ABDOMINAL PAIN Qualifiers: Abdominal location: generalized Qualified Code(s): R10.84 - Generalized abdominal pain (7) HTN (hypertension) Code(s): I10 - ESSENTIAL (PRIMARY) HYPERTENSION (8) Nausea Code(s): R11.0 - NAUSEA (9) Obstructive jaundice Code(s): K83.8 - OTHER SPECIFIED DISEASES OF BILIARY TRACT
--- NOTE | 2019-04-21 14:14 | PN ---
Progress Note, Physician History of Present Illness: patient stable no new issues - Current Medication List Current Medications: Active Medications Acetaminophen (Tylenol -) 650 mg PO Q4H PRN PRN Reason: FEVER Al Hydroxide/Mg Hydroxide (Mylanta Oral Suspension -) 30 ml PO Q6H PRN PRN Reason: DYSPEPSIA Amlodipine Besylate (Norvasc -) 5 mg PO DAILY [facility] Last Admin: 04/21/19 09:57 Dose: 5 mg Amoxicillin (Amoxicillin -) 500 mg PO TID [facility] Metronidazole (Flagyl -) 500 mg PO TID [facility] Ondansetron HCl (Zofran Injection) 4 mg IVPUSH Q6H PRN PRN Reason: NAUSEA AND/OR VOMITING Potassium Phos/Sodium Phos (Phos-Nak Packet -) 1 packet PO BID [facility] Stop: 04/21/19 22:01 Last Admin: 04/21/19 09:58 Dose: 1 packet Ursodiol (Actigal -) 300 mg PO BID [facility] Last Admin: 04/21/19 09:57 Dose: 300 mg - Objective Vital Signs: Vital Signs Temperature 98.5 F 04/21/19 13:38 Pulse Rate 58 L 04/21/19 13:38 Respiratory Rate 20 04/21/19 13:38 Blood Pressure 132/59 L 04/21/19 13:38 O2 Sat by Pulse Oximetry (%) 100 04/21/19 09:00 Constitutional: Yes: No Distress, Calm Cardiovascular: Yes: Regular Rate and Rhythm Respiratory: Yes: Regular, CTA Bilaterally Gastrointestinal: Yes: Normal Bowel Sounds, Soft Musculoskeletal: Yes: WNL Extremities: Yes: WNL Neurological: Yes: Alert, Oriented Psychiatric: Yes: Alert, Oriented Labs: CBC, BMP 04/21/19 06:27 04/21/19 06:27 INR, PTT INR 1.26 (0.83-1.09) H 04/18/19 09:36 Assessment/Plan Problem List - Problems (1) Biliary stent obstruction Code(s): T85.590A - [facility] COMPL OF BILE DUCT PROSTHESIS, INITIAL ENCOUNTER Qualifiers: Encounter type: initial encounter Qualified Code(s): T85.590A - Other mechanical complication of bile duct prosthesis, initial encounter (2) HTN (hypertension) Code(s): I10 - ESSENTIAL (PRIMARY) HYPERTENSION (3) Obstructive jaundice Code(s): K83.8 - OTHER SPECIFIED DISEASES OF BILIARY TRACT 4 shivering plan continue abx patient doing well
[2019-04-21] MEDS: AMOXICILLIN 500 MG CAPSULE (FP) PO SCH ×2 (15:02→21:27)
[2019-04-21] MEDS: metroNIDAZOLE 250 MG TABLET PO SCH ×2 (15:02→21:26)
[2019-04-22] MEDS: metroNIDAZOLE 250 MG TABLET PO SCH (05:46)
[2019-04-22] MEDS: AMOXICILLIN 500 MG CAPSULE (FP) PO SCH (05:46)
[2019-04-22 06:52] VITALS: PULSE 60
[2019-04-22 08:55] LABS: ALBUMIN 2.9 g/dl (3.4-5.0); BILIRUBIN,TOTAL 2.8 mg/dL (0.2-1); BLOOD UREA NITROGEN 12.5 mg/dL (7-18); CREATININE 0.8 mg/dL (0.55-1.3); POTASSIUM 4.3 mmol/L (3.5-5.1)
[2019-04-22 09:36] VITALS: BP 156/59; TEMP 98.2
[2019-04-22] MEDS: amLODIPine BESYLATE 5 MG TABLET (FP) PO SCH (10:13)
--- NOTE | 2019-04-22 10:22 | PN ---
Teaching Attending Note Name of Resident: Mercedes Webb ATTENDING PHYSICIAN STATEMENT I saw and evaluated the patient. I reviewed the resident's note and discussed the case with the resident. I agree with the resident's findings and plan as documented with exceptions below. SUBJECTIVE: Patient seen and examined. Doing well, tolerating diet, some nausea earlier, but no complaints, eager to go home. OBJECTIVE: Vital Signs Period Temp Pulse Resp BP Sys/Keen Pulse Ox Last 24 Hr 98.2 F-98.8 F 58-61 20-20 132-156/53-64 100 Intake & Output 04/19/19 04/20/19 04/21/19 04/22/19 23:59 23:59 23:59 23:59 Intake Total 2625 2210 500 600 Balance 2625 2210 500 600 General: sitting in bed in no acute distress Chest: CTAB, no rales or wheezing Abdomen:soft, NT throughout, ND, pos bowel sounds, no voluntary or involuntary guarding or rigidity noted Extremities: no edema Home Medications Medication Instructions Recorded Amlodipine Besylate [Norvasc -] 5 mg PO DAILY #0 tablet 01/29/17 Amoxicillin - [Amoxicillin 500mg 500 mg PO TID #12 capsule 04/22/19 Capsule -] Ursodiol [Actigal -] 300 mg PO BID #60 capsule 04/22/19 metroNIDAZOLE [Flagyl -] 500 mg PO TID #12 tablet 04/22/19 Active Medications Acetaminophen (Tylenol -) 650 mg PO Q4H PRN PRN Reason: FEVER Al Hydroxide/Mg Hydroxide (Mylanta Oral Suspension -) 30 ml PO Q6H PRN PRN Reason: DYSPEPSIA Amlodipine Besylate (Norvasc -) 5 mg PO DAILY [facility] Last Admin: 04/22/19 10:13 Dose: 5 mg Amoxicillin (Amoxicillin -) 500 mg PO TID [facility] Last Admin: 04/22/19 05:46 Dose: 500 mg Metronidazole (Flagyl -) 500 mg PO TID [facility] Last Admin: 04/22/19 05:46 Dose: 500 mg Ondansetron HCl (Zofran Injection) 4 mg IVPUSH Q6H PRN PRN Reason: NAUSEA AND/OR VOMITING Ursodiol (Actigal -) 300 mg PO BID [facility] Last Admin: 04/21/19 21:26 Dose: 300 mg Laboratory Results - last 24 hr 04/22/19 07:36 Sodium 140 Potassium 4.3 Chloride 111 H Carbon Dioxide 21 Anion Gap 7 L BUN 12.5 Creatinine 0.8 Est GFR (CKD-EPI)AfAm 76.83 Est GFR (CKD-EPI)NonAf 66.29 Random Glucose 103 Calcium 9.0 Total Bilirubin 2.8 H AST 54 H ALT 96 H Alkaline Phosphatase 237 H Total Protein 6.0 L Albumin 2.9 L ASSESSMENT AND PLAN: 88 yof with PMHx of HTN, Ca Colon s/p resection, Cholecystectomy 2013 s/p billairy temporary stent for Billiary leak, changed to metallic stent 2014 during colon resection, chronically obstructed billiary stent required frequent required cleaning by ERCP (last 12/2018) , recurrent obstructive Jaundice and ascending cholangitis admitted with nausea/vomiting -Ascending cholangits -Obstructed metallic CBD stent - 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 LFTs overall improved, afebrile, normal WBC, tolerating diet well. . Gi input noted, abx changed to amoxicilin/flagyl, will finish 1 week course. ID input noted. Continue amlodipine/Ursodiol Dispo dc home today with outpatient GI follow up. Plan discussed with patient, all questions answered
--- NOTE | 2019-04-22 13:30 | PN ---
Progress Note, Physician - Current Medication List Current Medications: Active Medications Acetaminophen (Tylenol -) 650 mg PO Q4H PRN PRN Reason: FEVER Al Hydroxide/Mg Hydroxide (Mylanta Oral Suspension -) 30 ml PO Q6H PRN PRN Reason: DYSPEPSIA Amlodipine Besylate (Norvasc -) 5 mg PO DAILY [facility] Last Admin: 04/22/19 10:13 Dose: 5 mg Amoxicillin (Amoxicillin -) 500 mg PO TID [facility] Last Admin: 04/22/19 05:46 Dose: 500 mg Metronidazole (Flagyl -) 500 mg PO TID [facility] Last Admin: 04/22/19 05:46 Dose: 500 mg Ondansetron HCl (Zofran Injection) 4 mg IVPUSH Q6H PRN PRN Reason: NAUSEA AND/OR VOMITING Ursodiol (Actigal -) 300 mg PO BID [facility] Last Admin: 04/21/19 21:26 Dose: 300 mg - Objective Vital Signs: Vital Signs Temperature 98.2 F 04/22/19 09:35 Pulse Rate 60 04/22/19 09:35 Respiratory Rate 20 04/22/19 09:35 Blood Pressure 156/59 L 04/22/19 09:35 O2 Sat by Pulse Oximetry (%) 99 04/22/19 09:00 Labs: CBC, BMP 04/21/19 06:27 04/22/19 07:36 INR, PTT INR 1.26 (0.83-1.09) H 04/18/19 09:36
--- NOTE | 2019-04-22 13:46 | DS ---
Physical Exam: SUBJECTIVE: Patient seen and examined sitting in chair, NAD, afebrile hemodynamically stable. no acute events. denies abdominal tenderness and nausea. denies vomiting, d/c, f/c. tolerating regular diet + bm OBJECTIVE: Vital Signs Period Temp Pulse Resp BP Sys/Keen Pulse Ox Last 24 Hr 98.2 F-98.8 F 59-61 20-20 143-156/53-64 99-100 PHYSICAL EXAM GENERAL: The patient is awake, alert, and fully oriented, in no acute distress. HEAD: Normal with no signs of trauma. EYES: PERRL, extraocular movements intact, no scleral icterus, conjunctiva clear. No ptosis. ENT: moist mucous membranes. NECK: supple. LUNGS: Breath sounds equal, clear to auscultation bilaterally HEART: Regular rate and rhythm, S1, S2 ABDOMEN: Soft, nontender, nondistended, normoactive bowel sounds, no guarding, no rebound EXTREMITIES: 2+ pulses, warm, well-perfused, no edema. 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 Normal speech, gait not observed. PSYCH: Normal mood, normal affect. SKIN: Warm, dry LABS Laboratory Results - last 24 hr 04/22/19 07:36 Sodium 140 Potassium 4.3 Chloride 111 H Carbon Dioxide 21 Anion Gap 7 L BUN 12.5 Creatinine 0.8 Est GFR (CKD-EPI)AfAm 76.83 Est GFR (CKD-EPI)NonAf 66.29 Random Glucose 103 Calcium 9.0 Total Bilirubin 2.8 H AST 54 H ALT 96 H Alkaline Phosphatase 237 H Total Protein 6.0 L Albumin 2.9 L HOSPITAL COURSE: Date of Admission:04/17/19 88 yrs old F lives at home H/O HTN, Ca Colon s/p resection, and cholecystectomy 2013 billairy temporary stent was put for Billiary leak but during Colon resection changes to metallic stent in 2014 (surgery was complications and a metal biliary stent was placed) chronically obstructed billiary stent required frequent required cleaning by ERCP (last 12/2018) , recurrent obstructive Jaundice and ascending cholangitis, presented after an episode of nausea, vomiting and chills, diagnosed with Obstructive jaundice due to biliary stant obstruction. patient underwent stent cleaning ERCP w/o complication and was dcd home. she was dcd on Amoxicillin 500 mg three times a day and Flagyl 500 mg three times a day for 4 more days and was started on Actigall 300 mg twice a day to decerase bile viscosity and clogging. She will need to repeat ERCP for stent exchange and further declogging of the stent in the next 4 months Date of Discharge: 04/22/19 Minutes to complete discharge: 35 Discharge Summary Reason For Visit: OBSTRUCTION OF BILIARY STENT Current Active Problems Adenoma (Acute) Biliary stent obstruction (Acute) Colon cancer (Acute) Polio osteopathy of lower leg (Acute) Condition: Stable - Instructions Diet, Activity, Other Instructions: You came to the hospital with abdominal pain that was caused by obstruction of your biliary stent and bile duct infection. You were seen by Dr Roberson and underwent endoscopic stent celaning. You were also given a course of IV antibiotics. FOLLOW UP: Please follow up with Dr Nation and Dr Roberson in 1 week. You will need to repeat your blood work in 1 week to check liver function and bilirubin Please return to the hospital if symptoms recur or any new fevers, chills, pain , jaundice noted Referrals: Sanju Roberson MD [Staff Physician] - Cher Nation MD [Non Staff, Medical] - Disposition: HOME - Home Medications Comprehensive Discharge Medication List: Ambulatory Orders Amlodipine Besylate [Norvasc -] 5 mg PO DAILY #0 tablet 01/29/17 Amoxicillin - [Amoxicillin 500mg Capsule -] 500 mg PO TID #12 capsule 04/22/19 Ursodiol [Actigal -] 300 mg PO BID #60 capsule 04/22/19 metroNIDAZOLE [Flagyl -] 500 mg PO TID #12 tablet 04/22/19 Problem List - Problems (1) Biliary stent obstruction Code(s): T85.590A - [facility] COMPL OF BILE DUCT PROSTHESIS, INITIAL ENCOUNTER Qualifiers: Encounter type: initial encounter Qualified Code(s): T85.590A - Other mechanical complication of bile duct prosthesis, initial encounter (2) Colon cancer Code(s): C18.9 - MALIGNANT NEOPLASM OF COLON, UNSPECIFIED (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 - OSTEOPATHY AFTER POLIOMYELITIS, UNSPECIFIED LOWER LEG; B91 - SEQUELAE OF POLIOMYELITIS (4) Abdominal pain Code(s): R10.9 - UNSPECIFIED ABDOMINAL PAIN Qualifiers: Abdominal location: generalized Qualified Code(s): R10.84 - Generalized abdominal pain (5) Acute cholecystitis Code(s): K81.0 - ACUTE CHOLECYSTITIS (6) Cholangitis Code(s): K83.0 - CHOLANGITIS * DO NOT USE * (7) HTN (hypertension) Code(s): I10 - ESSENTIAL (PRIMARY) HYPERTENSION (8) Nausea Code(s): R11.0 - NAUSEA This patient is new to me today: No Emergency Visit: Yes ED Registration Date: 04/17/19 Care time: The patient presented to the Emergency Department on the above date and was hospitalized for further evaluation of their emergent condition. Critical Care patient: No - Discharge Referral Referred to [facility] Med [facility] No
== END 2019-04-22 14:00 | disposition home or self-care (01) | DRG 920 ==
LOC: JER 14:16 → JERBED 17:04 → J5S 19:34
PROVIDERS: ADMIT Internal Medicine; ATTEND Hospitalist
PROC: 0F798DZ Dilation of Common Bile Duct with Intraluminal Device, Via Natural or Artificial Opening Endoscopic (ICD-10-PCS; 2019-04-18)
PROC: 0FC98ZZ Extirpation of Matter from Common Bile Duct, Via Natural or Artificial Opening Endoscopic (ICD-10-PCS; 2019-04-18)
PROC: BF10YZZ Fluoroscopy of Bile Ducts using Other Contrast (ICD-10-PCS; principal; 2019-04-18 14:45)
DX: T85.590A Other mechanical complication of bile duct prosthesis, initial encounter (principal); K83.09 Other cholangitis; K81.0 Acute cholecystitis; Y83.9 Surgical procedure, unspecified as the cause of abnormal reaction of the patient, or of later complication, without mention of misadventure at the time of the procedure; K83.8 Other specified diseases of biliary tract; I10 Essential (primary) hypertension; R11.0 Nausea; M89.669 Osteopathy after poliomyelitis, unspecified lower leg
CPT/HCPCS: 36415; 71046-TC-FY; 76000-TC-FY; 80048; 80053; 80076; 81003; 82150; 82248; 83605; 83690; 83735; 84100; 84484; 85025; 85610; 85730; 86140; 87040; 87086; 93005; 93010; 94760; 97116-GP; 97161-GP; 99285-25; J0131

== ENCOUNTER 2021-01-20 05:36 | Day surgery (SDC) | payer OTHER ==
[2021-01-18 12:43] VITALS: BMI 24.2
[2021-01-20] MEDS ORDERED: CEFAZOLIN 1 GM/D5W 1 GM/50 ML BAG ONE (13:00)
[2021-01-20 13:42] VITALS: TEMP 97.5
[2021-01-20 14:59] VITALS: BP 143/92; PULSE 62
== END 2021-01-20 15:30 | disposition home or self-care (01) ==
LOC: JASU-ENDO 05:36
PROVIDERS: ATTEND Internal Medicine Gastroenterology
PROC: 0F798DZ Dilation of Common Bile Duct with Intraluminal Device, Via Natural or Artificial Opening Endoscopic (ICD-10-PCS; principal; 2021-01-20 12:56)
DX: K83.8 Other specified diseases of biliary tract (principal); Z53.8 Procedure and treatment not carried out for other reasons

== ENCOUNTER 2021-06-02 04:40 | Day surgery (SDC) | payer OTHER ==
[2021-06-01 12:25] VITALS: BMI 23.6
[2021-06-02 09:12] VITALS: TEMP 97.8
[2021-06-02 10:49] VITALS: BP 132/62; PULSE 65
== END 2021-06-02 11:16 | disposition home or self-care (01) ==
LOC: JASU-ENDO 04:40
PROVIDERS: ATTEND Internal Medicine Gastroenterology
PROC: 0DJD8ZZ Inspection of Lower Intestinal Tract, Via Natural or Artificial Opening Endoscopic (ICD-10-PCS; principal; 2021-06-02 09:45)
DX: Z12.11 Encounter for screening for malignant neoplasm of colon (principal); K64.8 Other hemorrhoids; Z86.010 Personal history of colon polyps; Z98.0 Intestinal bypass and anastomosis status